=== PATIENT | female | born 1930 | race Caucasian/White ===

== ENCOUNTER → 2016-07-03 | Day surgery (SDC) | payer MEDICARE, OTHER ==
[~2016-07-03] MED LIST: Buffered Lidocaine 1% SYR 3ML* 3 ML/SYR SYRINGE INTRADERM ONE; Buffered Lidocaine 1% SYR 3ML* 3 ML/SYR SYRINGE ONE; Lidocaine 1% INJ* 10 MG/ML 30 ML SDV ONE; Lidocaine 2% MPF* 2 ML VIAL ONE; Midazolam* 1 MG/ML 2 ML VIAL (2 MG) ONE; Propofol* 10 MG/ML 20 ML BTL IV PUSH ONE; ceFAZolin 2 GM PREMIX (*) 2 GM/50 ML BAG IVPB ONE; fentaNYL* 50 MCG/ML 2 ML VIAL (100 MCG VIAL) ONE
[2016-07-03 09:50] VITALS: BP 106/64
--- NOTE | 2016-07-03 10:01 | RAD ---
INDICATION: Port placement. COMPARISON: Comparison is made with a prior chest x-ray study from January 15, 2016. TECHNIQUE: A portable view of the chest was obtained. FINDINGS: There is a power port central venous catheter present on the right side. The catheter tip projects approximately at the junction of the superior vena cava and right atrium. The heart is moderately enlarged and unchanged. There is a transvenous pacemaker present. The lungs are clear. No pleural effusion or pneumothorax is seen. IMPRESSION: STATUS POST POWERPORT CENTRAL VENOUS CATHETER PLACEMENT, NO EVIDENCE FOR ACUTE FINDING.
--- NOTE | 2016-07-03 10:04 | RAD ---
INDICATION: chest port placement COMPARISONS: None relevant TECHNIQUE: Fluoroscopy was provided for a vascular access procedure. Total fluoroscopy time is: 9.5 seconds FINDINGS: A right-sided chest port is noted from subclavian approach with tip overlying the superior vena cava. IMPRESSION: FLUOROSCOPY WAS PROVIDED FOR A VASCULAR ACCESS PROCEDURE CPT II Codes: 6045F
--- NOTE | 2016-07-04 03:54 | OP ---
CC: Dr. Dominique; [facility] OPERATIVE REPORT: DATE OF OPERATION: 07/03/16 DATE OF : 34 SURGEON: Abdirahman Dominique MD CHIEF OF SERVICE: None. ANESTHESIOLOGIST: Dr. Gudino. ANESTHESIA: LMAC. PRE-OP DIAGNOSIS: Carcinoma of the bladder. POST-OP DIAGNOSIS: Carcinoma of the bladder. OPERATIVE PROCEDURE: Placement of right subclavian 8-[place]awk PowerPort. DESCRIPTION OF PROCEDURE: The patient was supine on the operative table. After adequate intravenou s sedation, compression stockings, Ashley Hugger warmer, and intravenous antibiotics, the right neck a nd chest region were prepped with antiseptic, draped in a sterile fashion. Right subclavian incisio n was carried out. Inferior pocket was created. Subclavian venipuncture was carried out. A guidew mynor was passed under fluoroscopic guidance. Catheter was passed through the peel-away introducer, m easured, and cut at 27 cm, and attached to the port, which was sutured into pocket with 2-0 Prolene. The port was flushed with saline solution. The pocket was closed with 3-0 and 5-0 Polysorb, follo wed by Steri- Strips. The port was accessed. There was good blood return. It was flushed with hep arinized solution. A Tegaderm was placed. She tolerated the procedure well, was brought to Recover [facility] in good condition. No complications. No drains. No pathologic specimens. Sponge and instrument counts correct. Estimated blood loss less than 10 mL. [id number]/[facility] #: [id number]
== END | disposition home or self-care (01) ==
LOC: OR 07:30
PROVIDERS: ATTEND Surgery
DX: C67.9 Malignant neoplasm of bladder, unspecified (principal); I48.91 Unspecified atrial fibrillation; I10 Essential (primary) hypertension; I34.0 Nonrheumatic mitral (valve) insufficiency; Z79.01 Long term (current) use of anticoagulants
CPT/HCPCS: 71010; C1788; J0690; J1642; J2250; J2704; J3010

== ENCOUNTER 2016-09-15 15:38 | Inpatient (IN) | payer MEDICARE, OTHER ==
[2016-09-15] MEDS ORDERED: Ondansetron INJ* 2 MG/ML VIAL IV ONE (16:22)
[2016-09-15 16:24] LABS: Hematocrit 23 % (35-47); Hemoglobin 7.6 g/dl (12.0-16.0); Mean Corpuscular HGB Conc 33 g/dl (31-36); Mean Corpuscular Hemoglobin 30 pg (27-31); Mean Corpuscular Volume 91 fL (80-97); Mean Platelet Volume 7 um3 (7.4-10.4); Red Blood Count 2.51 10^6/ul (4.0-5.4); Red Cell Distribution Width 19 % (10.5-15); White Blood Count 17.4 10^3/ul (3.5-10.8)
[2016-09-15] MEDS ORDERED: Ondansetron INJ* 2 MG/ML VIAL ONE (16:24)
[2016-09-15] MEDS: NS 0.9% 1000 ML* 2,000 ML IV ONE (16:26)
[2016-09-15 16:36] LABS: Albumin 2.1 g/dL (3.2-5.2); BUN/Creatinine Ratio 13.4 (8-20); C Reactive Protein 135.84 mg/L (< 5.00); Calcium 7.2 mg/dL (8.6-10.3); EGFR African American 40.4 (>60); EGFR Non-African American 31.4 (>60); Globulin 2.5 g/dL (2-4); Potassium 4.2 mmol/L (3.5-5.0); Total Bilirubin 0.5 mg/dL (0.2-1.0); Total Protein 4.6 g/dL (6.4-8.9)
[2016-09-15 16:37] LABS: Troponin I 0.02 ng/mL (<0.04)
[2016-09-15] MEDS ORDERED: Morphine INJ* 4 MG/ML 1 ML SYRINGE IV ONE (16:48)
--- NOTE | 2016-09-15 17:12 | RAD ---
Indication: Cough, shortness of breath and pneumonia. Single frontal view of the chest performed at 1654 hours was reviewed. Comparison is made with previous exam dated July 03, 2016. PowerPort is in place with the tip in the superior vena cava. No pneumothorax is noted. Pacemaker leads are in place. IMPRESSION: No active cardiopulmonary disease is noted..
[2016-09-15] MEDS ORDERED: Phytonadione Oral Solution* 5 MG/25 ML UDC PO ONE (17:38)
--- NOTE | 2016-09-15 19:02 | ED ---
leopoldo Key Timothy, scribed for Melo Levy MD on 09/15/16 at 1605 . GI/ HPI - HPI Summary HPI Summary: Kelly Mendez is an 86 yo female presenting to [facility] with vaginal bleeding S /P bladder surgery 2 weeks ago, 09/01/16. She had a cardiac stent put in 09/13/16, after a NE 09/08/16. She states she had a steady flow in the toilet, but was not hemorrhaging. She was told she might have some vaginal bleeding, but she is now slightly hypotensive. She did not bleed at all yesterday. She vomited slightly yesterday. 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 There is no blood in the urine. She is on coumadin. Her MHx includes pacemaker 2012, stent, CHF prior to pacemaker, MVP, HTN, Afib, hypothyroidism, cranial plate 1998, hysterectomy, GI bleed, osteoperosis, anemia, endometrial radiation therapy. - History of Current Complaint Time Seen by Provider: 09/15/16 15:59 Stated Complaint: VAG BLEEDING/POST SURGERY Hx Obtained From: Patient Onset/Duration: Started Hours Ago, Still Present Timing: Constant Severity: Moderate Current Severity: Moderate Vaginal Bleeding Description: Bright Red Associated Signs and Symptoms: Positive: Syncope, Vomiting, Other: - syncope. Negative: Hematuria Additional Signs & Symptoms: Positive: Vaginal Bleeding - Additional Pertinent History Primary Care Physician: [id number] - Allergy/Home Medications Allergies/Adverse Reactions: Allergies Allergy/AdvReac Type Severity Reaction Status Date / Time No Known Allergies Allergy Verified 07/25/16 12:10 Home Medications: Home Medications Aspirin EC Low Dose* [Ecotrin EC Low Dose 81 MG*] 81 mg PO DAILY 09/15/16 [ History Confirmed 09/15/16] Atorvastatin* [Lipitor*] 80 mg PO DAILY 09/15/16 [History Confirmed 09/15/16] Cefuroxime Axetil [Ceftin 500 MG TAB] 500 mg PO Q12HR 09/15/16 [History Confirmed 09/15/16] Clopidogrel TAB* [Plavix TAB*] 75 mg PO DAILY 09/15/16 [History Confirmed ] Docusate CAP* [Colace Cap*] 100 mg PO BID 09/15/16 [History Confirmed 09/15/16] Ferrous Sulfate [Feosol] 65 mg PO DAILY 09/15/16 [History Confirmed 09/15/16] Hydrocodone-Acetaminophen [Lorcet Plus 7.5-325 mg] 1 tab PO Q6HR 09/15/16 [ History Confirmed 09/15/16] Metoprolol Succinate XL TAB* [Toprol XL TAB*] 50 mg PO DAILY 09/15/16 [History Confirmed 09/15/16] PMH/Surg Hx/FS Hx/Imm Hx Endocrine/Hematology History: Reports: Hx Thyroid Disease - HYPO THRYROID, Hx Anemia - 01/15/16 admission R/T HEMORRHAGE IN PT FOR 5 DAYS COLON Denies: Hx Diabetes Cardiovascular History: Reports: Hx Congestive Heart Failure - prior to pacer- no s/s since, Hx Coronary Artery Disease, Hx Hypertension - WELL CONTROLLED, Hx Pacemaker/ICD - LAURITA TACHY DISORDER, Hx Valvular Heart Disease - MVP, Other Cardiovascular Problems/Disorders - Afib Respiratory History: Denies: Hx Asthma, Hx Chronic Obstructive Pulmonary Disease (COPD) GI History: Reports: Hx Gastrointestinal Bleed - 01/15/16 admission, Other GI Disorders - HX OF LOWER GI BLEED, 12/2015 Denies: Hx Ulcer History: Reports: Other Problems/Disorders - HX OF BLOOD IN URINE Denies: Hx Kidney Stones - pt. 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 crainial surgery for "hole", plate insertion, 1998 [facility]. PACEMAKER 2014 [facility] Hx Anesthesia Reactions: No - Immunization History Date of Tetanus Vaccine: 2015 Date of Influenza Vaccine: 03/29/15 Infectious Disease History: Denies: Hx Hepatitis, Hx Human Immunodeficiency Virus (HIV), Traveled Outside the [place] in Last 30 Days - Family History Known Family History: Positive: Unknown - Social History Alcohol Use: None Alcohol Amount: WINE AT DINNER TIME Substance Use Type: Reports: None Smoking Status (MU): Never Smoked Tobacco Have You Smoked in the Last Year: No Review of Systems Constitutional: Negative Eyes: Negative ENT: Negative Cardiovascular: Negative Respiratory: Negative Positive: Vomiting Genitourinary: Other - vaginal bleeding Negative: hematuria Musculoskeletal: Negative Skin: Negative Positive: Syncope Psychological: Normal All Other Systems Reviewed And Are Negative: Yes Physical Exam - Summary Physical Exam Summary: The patient is ill appearing and pale. The skin is warm and dry and skin color reflects adequate perfusion. There is decreased skin turgor. HEENT: The head is normocephalic and atraumatic. The pupils are equal and reactive. The conjunctivae are pale and without drainage. Nares are patent and without drainage. Mouth reveals dry mucous membranes and the throat is without erythema and exudate. The external ears are intact. The ear canals are patent and without drainage. The tympanic membranes are intact. Neck is supple with full range of motion and non-tender. There are no carotid bruits. There is no neck vein distension. Respiratory: Chest is non-tender. Lungs are clear to auscultation and breath sounds are symmetrical and equal. There is no rales, rhonchi or wheezes. Cardiovascular: Heart is tachycardic with irregular rhythm. There is no murmur or rub auscultated. There is peripheral edema in the lower extremities and pulses are symmetrical and equal. Abdomen: The abdomen is soft and non-tender. There are normal bowel sounds heard in all four quadrants and there is no organomegaly palpated. There are 6 well-healing laproscopic incisions that are not inflamed and do not appear to be infected. There is an ileostomy with no blood. External vaginal: large amount of blood clots in the vagina. Musculoskeletal: There is no back pain noted. Extremities are non-tender with full range of motion. There is capillary refill of 3 seconds. There is no peripheral edema or calf tenderness elicited. Neurological: Patient is alert and oriented to person, place and time. The patient has symmetrical motor strength in all four extremities. Cranial nerves are grossly intact. Deep tendon reflexes are symmetrical and equal in all four extremities. Psychiatric: The patient has an appropriate affect and does not exhibit any anxiety or depression. Triage Information Reviewed: Yes Vital Signs On Initial Exam: Initial Vital Signs Temp 97.9 F 09/15/16 15:57 Pulse 90 09/15/16 15:57 Resp 20 09/15/16 15:57 BP 102/49 09/15/16 15:57 Pulse Ox 100 09/15/16 15:57 Vital Signs Reviewed: Yes Diagnostics - Vital Signs Vital Signs Temp Pulse Resp BP Pulse Ox 09/15/16 18:00 19 110/59 09/15/16 17:30 51 23 124/71 73 09/15/16 17:00 92 19 105/50 99 09/15/16 16:55 26 09/15/16 16:39 95 23 99/50 99 09/15/16 16:30 97/52 09/15/16 16:09 95 22 102/55 98 09/15/16 16:00 90 22 99 09/15/16 15:57 97.9 F 90 20 102/49 100 09/15/16 15:55 79 102/49 100 09/15/16 15:54 52 100 09/15/16 15:53 85/45 - Laboratory Lab Results: Lab Results 09/15/16 09/15/16 09/15/16 Range/Units 16:05 16:05 16:05 WBC 17.4 H (3.5-10.8) 10^3/ul RBC 2.51 L (4.0-5.4) 10^6/ul Hgb 7.6 L (12.0-16.0) g/dl Hct 23 L (35-47) % MCV 91 (80-97) fL MCH 30 (27-31) pg MCHC 33 (31-36) g/dl RDW 19 H (10.5-15) % Plt Count 252 (150-450) 10^3/ul MPV 7 L (7.4-10.4) um3 Neut % (Auto) 91.1 H (38-83) % Lymph % (Auto) 2.4 L (25-47) % Talbot % (Auto) 6.2 (1-9) % Eos % (Auto) 0.1 (0-6) % Baso % (Auto) 0.2 (0-2) % Absolute Neuts (auto) 15.8 H (1.5-7.7) 10^3/ul Absolute Lymphs (auto) 0.4 L (1.0-4.8) 10^3/ul Absolute Monos (auto) 1.1 H (0-0.8) 10^3/ul Absolute Eos (auto) 0 (0-0.6) 10^3/ul Absolute Basos (auto) 0 (0-0.2) 10^3/ul Absolute Nucleated RBC 0 10^3/ul Nucleated RBC % 0 INR (Anticoag Therapy) (0.89-1.11) APTT (26.0-36.3) seconds Sodium 127 L (133-145) mmol/L Potassium 4.2 (3.5-5.0) mmol/L Chloride 99 L (101-111) mmol/L Carbon Dioxide 17 L (22-32) mmol/L Anion Gap 11 (2-11) mmol/L BUN 21 (6-24) mg/dL Creatinine 1.57 H (0.51-0.95) mg/dL Est GFR ( Amer) 40.4 (>60) Est GFR (Non-Af Amer) 31.4 (>60) BUN/Creatinine Ratio 13.4 (8-20) Glucose 139 H (70-100) mg/dL Lactic Acid 2.0 (0.5-2.0) mmol/L Calcium 7.2 L (8.6-10.3) mg/dL Total Bilirubin 0.50 (0.2-1.0) mg/dL AST 19 (13-39) U/L ALT 12 (7-52) U/L Alkaline Phosphatase 109 H (34-104) U/L Total Creatine Kinase 20 (10-223) U/L Troponin I 0.02 (<0.04) ng/mL C-Reactive Protein 135.84 H (< 5.00) mg/L B-Natriuretic Peptide ( - 100) pg/mL Total Protein 4.6 L (6.4-8.9) g/dL Albumin 2.1 L (3.2-5.2) g/dL Globulin 2.5 (2-4) g/dL Albumin/Globulin Ratio 0.8 L (1-3) Lipase 17 (11.0-82.0) U/L Blood Type Antibody Screen Crossmatch 09/15/16 09/15/16 09/15/16 Range/Units 16:05 16:05 16:05 WBC (3.5-10.8) 10^3/ul RBC (4.0-5.4) 10^6/ul Hgb (12.0-16.0) g/dl Hct (35-47) % MCV (80-97) fL MCH (27-31) pg MCHC (31-36) g/dl RDW (10.5-15) % Plt Count (150-450) 10^3/ul MPV (7.4-10.4) um3 Neut % (Auto) (38-83) % Lymph % (Auto) (25-47) % Talbot % (Auto) (1-9) % Eos % (Auto) (0-6) % Baso % (Auto) (0-2) % Absolute Neuts (auto) (1.5-7.7) 10^3/ul Absolute Lymphs (auto) (1.0-4.8) 10^3/ul Absolute Monos (auto) (0-0.8) 10^3/ul Absolute Eos (auto) (0-0.6) 10^3/ul Absolute Basos (auto) (0-0.2) 10^3/ul Absolute Nucleated RBC 10^3/ul Nucleated RBC % INR (Anticoag Therapy) 2.83 H (0.89-1.11) APTT 36.0 (26.0-36.3) seconds Sodium (133-145) mmol/L Potassium (3.5-5.0) mmol/L Chloride (101-111) mmol/L Carbon Dioxide (22-32) mmol/L Anion Gap (2-11) mmol/L BUN (6-24) mg/dL Creatinine (0.51-0.95) mg/dL Est GFR ( Amer) (>60) Est GFR (Non-Af Amer) (>60) BUN/Creatinine Ratio (8-20) Glucose (70-100) mg/dL Lactic Acid (0.5-2.0) mmol/L Calcium (8.6-10.3) mg/dL Total Bilirubin (0.2-1.0) mg/dL AST (13-39) U/L ALT (7-52) U/L Alkaline Phosphatase (34-104) U/L Total Creatine Kinase (10-223) U/L Troponin I (<0.04) ng/mL C-Reactive Protein (< 5.00) mg/L B-Natriuretic Peptide 350 H ( - 100) pg/mL Total Protein (6.4-8.9) g/dL Albumin (3.2-5.2) g/dL Globulin (2-4) g/dL Albumin/Globulin Ratio (1-3) Lipase (11.0-82.0) U/L Blood Type O Positive Antibody Screen Negative Crossmatch See Detail Result Diagrams: 09/15/16 16:05 09/15/16 16:05 Lab Statement: Any lab studies that have been ordered have been reviewed, and results considered in the medical decision making process. - Radiology CXR Xray Interpretation: No Acute Changes - IMPRESSION: No active cardiopulmonary disease is noted. Radiology Interpretation Completed By: Radiologist - EKG 1605 Cardiac Rate: Tachycardia EKG Interpretation: Atrial Fibrillation at 99 BPM, no ST changes, old anterior wall NE Re-Evaluation - Re-Evaluation First Eval Re-Evaluation Time: 17:19 Change: Unchanged Comment: Pt was informed of consult with Dr. Meyers and his recommendation for a pelvic exam. Second Eval Re-Evaluation Time: 17:30 Change: Unchanged Comment: Pelvic Exam: Attempted exam with speculum, Pt was too uncomfotable secondary to increased pain to tolerate exam. Removed some clotted blood, saw no active bleeding. Third Eval Re-Evaluation Time: 18:25 Change: Unchanged Comment: Given that [facility] does not accept Pt's for transfer after 1700, Pt and family are requesting to be admitted to [facility] for observation. GIGU Course/Dx - Course Assessment/Plan: Kelly Mendez is an 86 yo female presenting [facility] with vaginal bleeding S/P bladder surgery. Pt has had an abdominal hysterectomy in the past due to a Hx of endometrial CA. Pt is on anticoagulant therapy. After review of her EKG, CXR, and lab work, as well as discussion with Dr. Meyers and Dr. David, she will be admitted to [facility] for further evaluation and care. - Diagnoses Differential Diagnoses - Female: Other - post operative bleeding from vagina, anticoagualtion therapy, Provider Diagnoses: Tachycardia, Hypotension, History of bladder cancer, History of endometrial cancer, Postoperative vaginal bleeding - Physician Notifications Discussed Care Of Patient With: [id number] - Dr. Meyers (hematology and oncology) - call out to Dr. Meyers. [id number] - Dr. Meyers (hematology and oncology) - returned call. Discussed Pt condition and recommends performance of a pelvic exam and to call [facility] for possible transfer of Pt. 173 - [facility] - transfer center is closed as of 1699. 1811 - Dr. Meyers (hematology and oncology) - Discussed Pt condition, agrees to evaluate Pt for admission to [facility]. Recommends consult with [employer] [employer]. 1823 - Dr. Munson ([employer] [employer]) - call out, she is engaged in a procedure. 1854 - Dr. David (urology) - discussed Pt condition. - Critical Care Time Critical Care Time: 30-74 min - 45 mins Discharge - Discharge Plan Condition: Stable Disposition: ADMITTED TO [facility] Discharge Disposition Comment: admitted to [facility] for further evaluation and treatment Referrals: No Primary Care Phys,NOPCP [Primary Care Provider] - The documentation as recorded by the leopoldo minor Timothy accurately reflects the service I personally performed and the decisions made by me, Melo Levy MD.
--- NOTE | 2016-09-15 19:23 | ADMNOTE ---
Admission Chief Complaint: vaginal bleeding History of Present Illness: 86 yo F w PMH of locally advanced bladder cancer sp recent robotic cystectomy presenting with vaginal bleeding. Kelly underwent a robotic assisted cystectomy on September 01 at [facility] with Dr. Meraz. She reports that she had vaginal packing after this which was removed on September 02. On September 06 she developed chest pressure and was diagnosed with an acute MN. She was transferred to [facility] under the care of Dr Juan Rose and had a drug eluding stent placed in her circumflex artery. She was started on a baby aspirin and plavix. Postoperatively she developed an ileus and had a NGT to decompress. This was discontinued prior to discharged and she was tolerating a bland diet. Yesterday she did vomit though today she was able to tolerate a diet and had a very small, nonbloody BM. She was discharged on Thursday after being transfused 2 units of PRBCs. She had a Hb of 8.9 on discharge per her recollection. Over the weekend she had mild vaginal spotting which they told her to expect, however today she developed brisk bright red blood per vagina and so was advised by [facility] to come to the ER. She was noted to have an INR of 2.8 on arrival and at my recommendation was given vitamin K and is awaiting 2 U PRBC. I have personally spoken with the trailhead maintenance worker who advised that he is ok with holding the coumadin, and even the asa if necessary, but would strongly recommend continuing plavix if possible. Dr. Levy did try to do a pelvic exam however it was very uncomfortable, and there was some clotting on the speculum. I did speak with the covering urologist from [place] who felt that this could be some postoperative seroma from the vaginal cuff and if stabilizes can likely be followed up as an outpatient as planned on , however if vaginal exam revealed any more concerning findings they were happy to accept her as a transfer when a bed was available. She denies any chest pain at this time. Allergies/Medications Medication: Home Medications Medication Instructions Recorded Confirmed Type Levothyroxine TAB* [Synthroid 88 88 mcg PO QAM 10/29/15 09/15/16 History MCG TAB*] Warfarin TAB(*) [Coumadin TAB(*)] 2.5 mg PO SUMOWEFRSA 07/02/16 09/15/16 History Warfarin TAB(*) [Coumadin TAB(*)] 5 mg PO TUTH 07/02/16 09/15/16 History Aspirin EC Low Dose* [Ecotrin EC 81 mg PO DAILY 09/15/16 09/15/16 History Low Dose 81 MG*] Atorvastatin* [Lipitor*] 80 mg PO DAILY 09/15/16 09/15/16 History Cefuroxime Axetil [Ceftin 500 MG 500 mg PO Q12HR 09/15/16 09/15/16 History TAB] Clopidogrel TAB* [Plavix TAB*] 75 mg PO DAILY 09/15/16 09/15/16 History Docusate CAP* [Colace Cap*] 100 mg PO BID 09/15/16 09/15/16 History Ferrous Sulfate [Feosol] 65 mg PO DAILY 09/15/16 09/15/16 History Hydrocodone-Acetaminophen [Lorcet 1 tab PO Q6HR 09/15/16 09/15/16 History Plus 7.5-325 mg] Metoprolol Succinate XL TAB* 50 mg PO DAILY 09/15/16 09/15/16 History [Toprol XL TAB*] Allergies/Adverse Reactions: Allergies Allergy/AdvReac Type Severity Reaction Status Date / Time No Known Allergies Allergy Verified 07/25/16 12:10 History - Past Medical History Other History: prior GIB. afib. bladder cancer. MN. endometrial CA sp hysterectomy and RT 1998. chronic cystitis related to above. HTN. hypothyroidism. hernia repair. PPM - Family History Other Family History: mother breast cancer. sister melanoma - Social History Hx Alcohol Use: No Hx Tobacco Use: No Marital Status: Review of Systems - Review of Systems Constitutional Symptoms: Positive: Fatigue Dermatology: Positive: Normal HEENT: Positive: Normal Eyes: Positive: Normal Thyroid: Positive: Primary Hypothyroidism Pulmonary: Positive: Cough Cardiology: Positive: Normal Gastroenterology: Positive: Constipation Genitourinay - Female: Vaginal Discharge Endocrinology: Positive: Thyroid Problems Hematologic/Lymphatic: Positive: Anemia Neurology: Positive: Normal Psychiatry: Positive: Normal Physical Exam - Physical Exam Physical Examination: Vital Signs Temp Pulse Resp BP Pulse Ox 97.9 F 96 20 100/59 98 09/15/16 15:57 09/15/16 19:00 09/15/16 19:00 09/15/16 19:00 09/15/16 19:00 well appearing sitting up in NAD perr eomi op moist CTA bl s1 s2 irr irr soft nt well healing port sites clean ostomy site neobladder trace ankle edema a+O x 3, nonfocal neurological exam Results - Lab Results Lab Results: 09/15/16 09/15/16 09/15/16 16:05 16:05 16:05 WBC 17.4 H RBC 2.51 L Hgb 7.6 L Hct 23 L MCV 91 MCH 30 MCHC 33 RDW 19 H Plt Count 252 MPV 7 L Neut % (Auto) 91.1 H Lymph % (Auto) 2.4 L Smith % (Auto) 6.2 Eos % (Auto) 0.1 Baso % (Auto) 0.2 Absolute Neuts (auto) 15.8 H Absolute Lymphs (auto) 0.4 L Absolute Monos (auto) 1.1 H Absolute Eos (auto) 0 Absolute Basos (auto) 0 Absolute Nucleated RBC 0 Nucleated RBC % 0 INR (Anticoag Therapy) APTT Sodium 127 L Potassium 4.2 Chloride 99 L Carbon Dioxide 17 L Anion Gap 11 BUN 21 Creatinine 1.57 H Est GFR ( Amer) 40.4 Est GFR (Non-Af Amer) 31.4 BUN/Creatinine Ratio 13.4 Glucose 139 H Lactic Acid 2.0 Calcium 7.2 L Total Bilirubin 0.50 AST 19 ALT 12 Alkaline Phosphatase 109 H Total Creatine Kinase 20 Troponin I 0.02 C-Reactive Protein 135.84 H B-Natriuretic Peptide Total Protein 4.6 L Albumin 2.1 L Globulin 2.5 Albumin/Globulin Ratio 0.8 L Lipase 17 Blood Type Antibody Screen Crossmatch 09/15/16 09/15/16 09/15/16 16:05 16:05 16:05 WBC RBC Hgb Hct MCV MCH MCHC RDW Plt Count MPV Neut % (Auto) Lymph % (Auto) Smith % (Auto) Eos % (Auto) Baso % (Auto) Absolute Neuts (auto) Absolute Lymphs (auto) Absolute Monos (auto) Absolute Eos (auto) Absolute Basos (auto) Absolute Nucleated RBC Nucleated RBC % INR (Anticoag Therapy) 2.83 H APTT 36.0 Sodium Potassium Chloride Carbon Dioxide Anion Gap BUN Creatinine Est GFR ( Amer) Est GFR (Non-Af Amer) BUN/Creatinine Ratio Glucose Lactic Acid Calcium Total Bilirubin AST ALT Alkaline Phosphatase Total Creatine Kinase Troponin I C-Reactive Protein B-Natriuretic Peptide 350 H Total Protein Albumin Globulin Albumin/Globulin Ratio Lipase Blood Type O Positive Antibody Screen Negative Crossmatch See Detail Assessment and Plan Impression: 86 yo F w PMH of afib on coumadin, locally advanced bladder CA sp recent robotic cystectomy complicated by an acute MN presenting now wiht vaginal bleeding on triplet anticoagulation. In speaking with the covering urologic oncologist, this is a common complication in women sp cystectomy and is likely related to vaginal cuff bleeding with a seroma, and exacerbated by coumadin. As long as she is stable and there is no clear pathology on vaginal exam they felt that it could be managed locally with transfusion support and stopping the coumadin. They recommended against packing. If she becomes unstable or there is a clear surgical defect that needs operative management they would be happy to accept her in transfer, otherwise they would see her as per routine on as an outpatient. At this point she will be admitted as an observation to telemetry and will be transfused 2 U prbc. We will try to continue her plavix and asa. I will ask Dr. Munson to see her in consultation for a thorough pelvic exam.
--- NOTE | 2016-09-15 21:09 | RAD ---
Indication: Vaginal bleeding, status post cystectomy, evaluate for intraoperative fluid collection. CT of the abdomen and pelvis was performed without oral or IV contrast administration. Coronal and sagittal reconstructed images were obtained. Lung bases demonstrate no pleural fluid, nodules or masses. Heart is enlarged without pericardial effusion. Pacemaker leads are in place. Liver is normal in size. No focal lesions or present although the study is limited due to lack of IV contrast. Small amount of perihepatic ascites is noted. The gallbladder is partially contracted. Common duct is not dilated. Pancreas demonstrates no mass or pancreatic duct dilatation. The spleen is normal in size. No adrenal masses are noted. The kidneys demonstrates bilateral ureteral stents in place. The patient has had a cystectomy with a right ileal conduit. No retroperitoneal lymphadenopathy is noted. Aorta and inferior vena cava are unremarkable. There are moderately dilated loops of small bowel noted. Deep in the pelvis at the cystectomy site there is a fluid collection with flocculent areas of air consistent with an abscess collection. This measures approximately 6.1 x 6.2 x 6.3 cm. No hernias are noted. The small bowel loops demonstrate moderately dilated loops of small bowel suspicious for an adynamic ileus. IMPRESSION: PELVIC FLUID COLLECTION MEASURING 6.2 X 6.2 X 6.3 CM IN THE CYSTECTOMY SITE SUSPICIOUS FOR EITHER POSTOPERATIVE COLLECTION OR EARLY ABSCESS FORMATION. MODERATELY DISTENDED LOOPS OF SMALL BOWEL WHICH MAY REPRESENT ADYNAMIC ILEUS. THERE IS A RIGHT LOWER QUADRANT ILEAL LOOP NOTED. BILATERAL URETERAL STENTS ARE PRESENT. SMALL AMOUNT OF ASCITES IS NOTED.
[2016-09-15] MEDS: ceFUROXime TAB(*) 250 MG PO SCH (22:08)
[2016-09-15] MEDS: Docusate CAP* 100 MG PO SCH (22:09)
[2016-09-16 04:24] LABS: Hematocrit 25 % (35-47); Hemoglobin 8.5 g/dl (12.0-16.0); Mean Corpuscular HGB Conc 34 g/dl (31-36); Mean Corpuscular Hemoglobin 30 pg (27-31); Mean Corpuscular Volume 89 fL (80-97); Mean Platelet Volume 7 um3 (7.4-10.4); Red Blood Count 2.85 10^6/ul (4.0-5.4); Red Cell Distribution Width 18 % (10.5-15); White Blood Count 11.2 10^3/ul (3.5-10.8)
[2016-09-16 04:57] LABS: Calcium 7.4 mg/dL (8.6-10.3); Globulin 2.4 g/dL (2-4); Total Bilirubin 0.9 mg/dL (0.2-1.0); Total Protein 4.4 g/dL (6.4-8.9)
[2016-09-16] MEDS: Levothyroxine TAB* 88 MCG TAB PO SCH (06:16)
[2016-09-16] MEDS: Metoprolol Succinate XL TAB* 50 MG PO SCH (08:25)
[2016-09-16] MEDS: Aspirin EC Low Dose* 81 MG TAB.EC PO SCH (08:26)
[2016-09-16] MEDS: Ferrous Sulfate TAB* 325 MG PO SCH ×2 (08:26→08:30)
[2016-09-16] MEDS: Atorvastatin* 80 MG TAB PO SCH (08:26)
[2016-09-16] MEDS: ceFUROXime TAB(*) 250 MG PO SCH ×2 (08:27→20:30)
[2016-09-16] MEDS: Docusate CAP* 100 MG PO SCH ×2 (08:27→20:30)
[2016-09-16] MEDS: Clopidogrel TAB* 75 MG PO SCH (08:27)
--- NOTE | 2016-09-16 10:15 | RAD ---
HISTORY: Postop bilateral edema COMPARISONS: None relevant TECHNIQUE: Multiple transverse and longitudinal ultrasound images were obtained of the bilateral lower extremities from the level of the common femoral vein inferiorly through to the infrapopliteal veins using grayscale, color Doppler, and spectral Doppler imaging with and without compression and with augmentation. FINDINGS: Evaluation the calf veins is limited secondary to swelling. VEINS: The venous system of the bilateral lower extremities is compressible throughout its course, with normal flow on color Doppler imaging and normal response to augmentation on spectral Doppler imaging. SOFT TISSUES: Unremarkable. OTHER FINDINGS: None. IMPRESSION: LIMITED EVALUATION OF THE CALF VEINS. THERE IS NO DEEP VEIN THROMBOSIS OF THE VISUALIZED PORTIONS OF THE LOWER EXTREMITY VEINS BILATERALLY.
[2016-09-16 11:07] LABS: Budding Yeast Present (Absent); Urine Bacteria Absent (Absent); Urine Bilirubin Negative (Negative); Urine Glucose Negative (Negative); Urine Nitrite Negative (Negative)
[2016-09-16] MEDS: Polyethylene Glycol 3350* 17 GM PACKET PO PRN (13:41)
[2016-09-16 14:03] LABS: Hematocrit 26 % (35-47); Hemoglobin 8.8 g/dl (12.0-16.0); Mean Corpuscular HGB Conc 33 g/dl (31-36); Mean Corpuscular Hemoglobin 30 pg (27-31); Mean Corpuscular Volume 89 fL (80-97); Mean Platelet Volume 7 um3 (7.4-10.4); Red Blood Count 2.97 10^6/ul (4.0-5.4); Red Cell Distribution Width 18 % (10.5-15); White Blood Count 11.1 10^3/ul (3.5-10.8)
--- NOTE | 2016-09-16 16:57 | CONS ---
CARDIOLOGY CONSULTATION: DATE OF CONSULT: 09/16/16 INDICATION FOR CONSULTATION: Atrial fibrillation, tachycardia. HISTORY OF PRESENT ILLNESS: The patient is an 86-year-old female with a history of chronic atrial fibrillation, history of single chamber pacemaker implantation in 2013, history of a recent myocardial infarction, history of recent robotic cystectomy for bladder cancer. The patient was brought to the emergency room because of vaginal bleeding. I was consulted because the patient was tachycardic this morning with a heart rate of 150 in atrial fibrillation. The patient has a history of chronic atrial fibrillation. She had a single chamber [employer] pacemaker placed in 2013. It is a [employer] model 1210. The patient had surgery on September 01 for a cystectomy for bladder cancer. The patient had an acute myocardial infarction on September 06 and had a stent placed to her left circumflex artery on that date. The patient was discharged on aspirin 81 mg a day, Plavix 75 mg a day and Coumadin. The patient was brought to the emergency room yesterday because of vaginal spotting. This morning the patient had a heart rate of 150 with a blood pressure of 110/ 70. In speaking with the patient, she has no specific cardiac complaints. She denies any further episodes of chest pain. She denies any palpitations. She denies any lightheadedness, dizziness, or syncope. PAST MEDICAL HISTORY: Significant for: 1. Bladder cancer. 2. Endometrial cancer, status post hysterectomy in 1998. 3. History of chronic atrial fibrillation. 4. History of coronary artery disease with a stent to her left circumflex artery on 09/06/16. 5. Hypothyroidism. PAST SURGICAL HISTORY: 1. Hysterectomy. 2. Bladder cystectomy. 3. Hernia repair. 4. Pacemaker implantation. OUTPATIENT MEDICATIONS: 1. Metoprolol XL 50 mg a day. 2. Iron tablets. 3. Plavix 75 mg a day. 4. Ceftin 500 mg twice a day. 5. Lipitor 80 mg a day. 6. Aspirin 81 mg a day. 7. Coumadin as directed. 8. Levothyroxine 88 mcg a day. ALLERGIES: No known drug allergies. SOCIAL HISTORY: She is . She denies tobacco or alcohol use. REVIEW OF SYSTEMS: Per her intake sheet. PHYSICAL EXAMINATION: Height is 5 feet 5 inches, weight is 130 pounds, temperature 97.9, heart rate is 100, blood pressure 110/54, respiratory rate is 24, oxygen saturation is 100% on room air. Sclerae anicteric. Oropharynx is pink without erythema. Carotids are 2+ without bruits. JVD is normal. Thyroid is normal. Cardiac Exam: Irregular, tachycardic. S1, S2 without any murmurs, rubs or gallops. Lungs: Have mild rhonchi on exam. There is no dullness to percussion. There are no rales on exam. Abdomen: Mildly tender, it is mildly distended. There are very minimal bowel sounds. There is no obvious hepatosplenomegaly. Extremities: Show no edema. She has 2+ pulses throughout. The patient is awake, alert and oriented. She moves all 4 extremities equally. DIAGNOSTIC STUDIES/LAB DATA: White count 11.2, hemoglobin 8.5, hematocrit 25, platelet count 204. Chemistries: Sodium 129, BUN 20, creatinine 1.4. AST and ALT are normal. INR today is 1.67. EKG demonstrates atrial fibrillation with rapid ventricular response, incomplete right bundle branch block. Pacemaker interrogation today demonstrates a [employer] model 1210 implant date December 2013. The patient has a single chamber device. She is ventricularly paced 15% of the time, ventricularly sensed,85% of the time. Her average heart rate is between 90 and 100 beats a minute. Her ventricular lead is functioning normally. No abnormal rhythms detected. IMPRESSION: This is an 86-year-old female who was admitted to the hospital with vaginal bleeding. She has a recent history of bladder cystectomy for bladder cancer, also a recent myocardial infarction with a stent to her left circumflex artery. The patient's heart rate was very elevated this morning. It is now down to a more appropriate range. For now my recommendation is to continue medical therapy in this patient. The patient will continue on Plavix and aspirin. Her Coumadin will be held because of her vaginal bleeding. The patient will continue on heart rate control. The patient will be restarted on her metoprolol XL 50 mg a day. If her heart rate remains elevated and poorly controlled, we will consider digoxin for heart rate control. No further cardiac workup is necessary at this point. The patient will follow up with her regular hr associate, Dr. Juan Menezes. CC: Bayron Salmeron MD* [id number]/[facility] #: [id number] [facility]
[2016-09-16] MEDS: GuaiFENesin DM* 5 ML UDC PO PRN (19:24)
[2016-09-16 19:28] LABS: Hematocrit 27 % (35-47); Hemoglobin 8.8 g/dl (12.0-16.0); Mean Corpuscular HGB Conc 33 g/dl (31-36); Mean Corpuscular Hemoglobin 30 pg (27-31); Mean Corpuscular Volume 89 fL (80-97); Mean Platelet Volume 7 um3 (7.4-10.4); Red Blood Count 2.98 10^6/ul (4.0-5.4); Red Cell Distribution Width 18 % (10.5-15); White Blood Count 11.6 10^3/ul (3.5-10.8)
[2016-09-16] MEDS: oxyCODONE/Acetamin 5/325 MG* TAB PO PRN (20:31)
[2016-09-17] MEDS: GuaiFENesin DM* 5 ML UDC PO PRN (00:05)
[2016-09-17] MEDS: Ondansetron INJ* 2 MG/ML VIAL IV PRN ×2 (00:08→10:47)
[2016-09-17] MEDS: oxyCODONE/Acetamin 5/325 MG* TAB PO PRN ×2 (05:48→20:39)
[2016-09-17] MEDS: Levothyroxine TAB* 88 MCG TAB PO SCH (05:48)
[2016-09-17] MEDS: Digoxin IV* 0.5 MG/2 ML AMP (0.25 MG/ML) IV SCH ×2 (05:51→10:32)
[2016-09-17 06:34] LABS: Hematocrit 27 % (35-47); Hemoglobin 9.1 g/dl (12.0-16.0); Mean Corpuscular HGB Conc 34 g/dl (31-36); Mean Corpuscular Hemoglobin 30 pg (27-31); Mean Corpuscular Volume 89 fL (80-97); Mean Platelet Volume 7 um3 (7.4-10.4); Red Blood Count 3.04 10^6/ul (4.0-5.4); Red Cell Distribution Width 18 % (10.5-15); White Blood Count 11.2 10^3/ul (3.5-10.8)
[2016-09-17 06:48] LABS: Albumin 2.2 g/dL (3.2-5.2); BUN/Creatinine Ratio 13.5 (8-20); Calcium 7.6 mg/dL (8.6-10.3); EGFR African American 38.7 (>60); EGFR Non-African American 30.1 (>60); Globulin 2.7 g/dL (2-4); Total Bilirubin 0.5 mg/dL (0.2-1.0); Total Protein 4.9 g/dL (6.4-8.9)
[2016-09-17] MEDS: Ferrous Sulfate TAB* 325 MG PO SCH (08:27)
[2016-09-17] MEDS: Docusate CAP* 100 MG PO SCH ×2 (08:28→20:39)
[2016-09-17] MEDS: Metoprolol Succinate XL TAB* 50 MG PO SCH (08:28)
[2016-09-17] MEDS: Aspirin EC Low Dose* 81 MG TAB.EC PO SCH (08:29)
[2016-09-17] MEDS: Clopidogrel TAB* 75 MG PO SCH (08:33)
[2016-09-17] MEDS: ceFUROXime TAB(*) 250 MG PO SCH ×2 (08:34→20:39)
[2016-09-17] MEDS: Atorvastatin* 80 MG TAB PO SCH (08:34)
[2016-09-17] MEDS: Polyethylene Glycol 3350* 17 GM PACKET PO PRN (08:34)
[2016-09-17 09:29] LABS: Troponin I 0.05 ng/mL (<0.04)
[2016-09-17] MEDS ORDERED: Metoprolol Tartrate IV* 1 MG/ML 5 ML VIAL IV ONE (13:35)
[2016-09-17] MEDS ORDERED: Digoxin TAB* 0.25 MG PO ONE (15:00)
[2016-09-17] MEDS ORDERED: Digoxin IV* 0.5 MG/2 ML AMP (0.25 MG/ML) IV SLOW PU ONE (15:30)
[2016-09-17] MEDS ORDERED: Diltiazem IV VIAL* 125 MG in D5W 100 ML BAG* 100 ML IV ONE ×2 (15:31→15:43)
[2016-09-17] MEDS ORDERED: Diltiazem IV VIAL* 125 MG/25 ML VIAL ONE (17:47)
[2016-09-17] MEDS: Diltiazem IV VIAL* 125 MG in D5W 100 ML BAG* 100 ML IV SCH (18:02)
[2016-09-17] MEDS ORDERED: Metoprolol Succinate XL TAB* 25 MG PO SCH (20:00)
[2016-09-18 05:35] LABS: Hematocrit 25 % (35-47); Hemoglobin 8.3 g/dl (12.0-16.0); Mean Corpuscular HGB Conc 34 g/dl (31-36); Mean Corpuscular Hemoglobin 30 pg (27-31); Mean Corpuscular Volume 90 fL (80-97); Mean Platelet Volume 7 um3 (7.4-10.4); Red Blood Count 2.77 10^6/ul (4.0-5.4); Red Cell Distribution Width 18 % (10.5-15); White Blood Count 9.4 10^3/ul (3.5-10.8)
[2016-09-18 05:52] LABS: Digoxin 1.8 ng/ml (0.8-2.0)
[2016-09-18 05:53] LABS: BUN/Creatinine Ratio 14.8 (8-20); Calcium 7.4 mg/dL (8.6-10.3); EGFR African American 42.9 (>60); EGFR Non-African American 33.3 (>60); Potassium 3.9 mmol/L (3.5-5.0)
[2016-09-18 05:56] LABS: Troponin I 0.03 ng/mL (<0.04)
[2016-09-18] MEDS: Levothyroxine TAB* 88 MCG TAB PO SCH (06:03)
[2016-09-18] MEDS: Docusate CAP* 100 MG PO SCH (08:06)
[2016-09-18] MEDS: Clopidogrel TAB* 75 MG PO SCH (08:06)
[2016-09-18] MEDS: Metoprolol Succinate XL TAB* 50 MG PO SCH (08:06)
[2016-09-18] MEDS: ceFUROXime TAB(*) 250 MG PO SCH (08:06)
[2016-09-18] MEDS: Ferrous Sulfate TAB* 325 MG PO SCH ×2 (08:06→08:10)
[2016-09-18] MEDS: Atorvastatin* 80 MG TAB PO SCH (08:06)
[2016-09-18] MEDS: Aspirin EC Low Dose* 81 MG TAB.EC PO SCH (08:06)
--- NOTE | 2016-09-18 08:36 | RAD ---
INDICATION: Abdominal distention evaluate for bowel obstruction. COMPARISON: Comparison is made with a prior CT of the abdomen and pelvis from September 15, 2016. TECHNIQUE: Frontal supine films of the abdomen were obtained. FINDINGS: There is moderate distention of several central small bowel loops. The colon is nondistended. These findings appear unchanged from the prior CT study. There are bilateral percutaneous ureteral stents present. No significant abnormal calcifications are seen. IMPRESSION: MODERATE SMALL BOWEL DISTENTION SUGGESTIVE OF A PARTIAL SMALL BOWEL OBSTRUCTION LESS LIKELY PARALYTIC ILEUS, UNCHANGED.
[2016-09-18] MEDS ORDERED: Digoxin TAB* 0.125 MG PO ONE (09:00)
[2016-09-18] MEDS ORDERED: Diltiazem CD CAP* 120 MG PO SCH (09:00)
--- NOTE | 2016-09-18 09:34 | DS ---
- Discharge Summary TRANSFER SUMMARY ADMIT DATE: 09/15/16 DISCHARGE/TRANSFER DATE:09/18 DISCHARGE DIAGNOSIS: 1. partial small bowel obstruction 2. afib w RVR, currently controlled on cardizem drip 3. vaginal bleeding, currently stopped 4. postoperative anterior pelvis fluid collection 5. bladder cancer sp radical cystectomy DISCHARGE MEDICATIONS: Aspirin (Aspirin Ec Low Dose*) 81 mg PO DAILY [facility] Last Admin: 09/18/16 08:06 Dose: 81 mg Atorvastatin Calcium (Lipitor*) 80 mg PO DAILY [facility] Last Admin: 09/18/16 08:06 Dose: 80 mg Cefuroxime Axetil (Ceftin Tab(*)) 500 mg PO Q12H [facility] Last Admin: 09/18/16 08:06 Dose: 500 mg Clopidogrel Bisulfate (Plavix Tab*) 75 mg PO DAILY [facility] Last Admin: 09/18/16 08:06 Dose: 75 mg Guaifenesin/Dextromethorphan (Robitussin Dm*) 10 ml PO Q4H PRN PRN Reason: COUGH Last Admin: 09/17/16 00:05 Dose: 10 ml Heparin Sodium (Porcine) (Heparin Flush Port (Ivad)) 5 ml FLUSH DAILY [facility] PRN Reason: Protocol Last Admin: 09/18/16 08:07 Dose: Not Given Diltiazem HCl 125 mg/ Dextrose 125 mls @ 5 mls/hr IV PER RATE [facility] PRN Reason: 5 MG/HR Last Admin: 09/17/16 18:02 Dose: 5 mls/hr Levothyroxine Sodium (Synthroid Tab*) 88 mcg PO DAILY@0600 [facility] Last Admin: 09/18/16 06:03 Dose: 88 mcg Metoprolol Succinate (Toprol Xl Tab*) 50 mg PO DAILY [facility] Last Admin: 09/18/16 08:06 Dose: 50 mg Metoprolol Succinate (Toprol Xl Tab*) 25 mg PO 1999 [facility] Last Admin: 09/17/16 20:39 Dose: 25 mg Ondansetron HCl (Zofran Inj*) 4 mg IV Q6H PRN PRN Reason: NAUSEA Last Admin: 09/17/16 10:47 Dose: 4 mg Polyethylene Glycol/Electrolytes (Miralax*) 17 gm PO DAILY PRN PRN Reason: CONSTIPATION Last Admin: 09/17/16 08:34 Dose: 17 gm PERTINENT LABS: Microbiology 09/15/16 16:35 Blood Venous Blood Culture - Final 09/15/16 16:35 Blood Venous Blood Culture - Final 09/15/16 16:35 Blood Venous Aerobic Blood Culture - Preliminary 09/15/16 16:35 Blood Venous Anaerobic Blood Culture - Preliminary No Growth Day 2 No Growth Day 2 09/15/16 16:35 Blood Venous Aerobic Blood Culture - Preliminary 09/15/16 16:35 Blood Venous Anaerobic Blood Culture - Preliminary No Growth Day 2 No Growth Day 2 Laboratory Tests 09/15/16 09/15/16 09/16/16 16:05 16:05 19:20 WBC 17.4 H Hgb 7.6 L Hct 23 L Plt Count 252 Neut % (Auto) 91.1 H INR (Anticoag Therapy) 2.83 H 1.17 H Sodium Potassium Chloride Carbon Dioxide Anion Gap BUN Creatinine Calcium AST ALT Alkaline Phosphatase Troponin I B-Natriuretic Peptide Total Protein Albumin TSH Digoxin 09/16/16 09/17/16 09/17/16 19:20 05:45 15:40 WBC Hgb Hct Plt Count Neut % (Auto) INR (Anticoag Therapy) Sodium Potassium Chloride Carbon Dioxide Anion Gap BUN Creatinine Calcium AST 23 ALT 14 Alkaline Phosphatase 91 Troponin I 0.05 H* B-Natriuretic Peptide 157 H Total Protein 4.9 L Albumin 2.2 L TSH 2.13 Digoxin 09/17/16 09/18/16 09/18/16 15:40 05:25 05:25 WBC 9.4 Hgb 8.3 L Hct 25 L Plt Count 221 Neut % (Auto) INR (Anticoag Therapy) Sodium 125 L Potassium 3.9 Chloride 102 Carbon Dioxide 19 L Anion Gap 4 BUN 22 Creatinine 1.49 H Calcium 7.4 L AST ALT Alkaline Phosphatase Troponin I 0.04 H* 0.03 B-Natriuretic Peptide Total Protein Albumin TSH Digoxin 1.8 ct a/p: PELVIC FLUID COLLECTION MEASURING 6.2 X 6.2 X 6.3 CM IN THE CYSTECTOMY SITE SUSPICIOUS FOR EITHER POSTOPERATIVE COLLECTION OR EARLY ABSCESS FORMATION. MODERATELY DISTENDED LOOPS OF SMALL BOWEL WHICH MAY REPRESENT ADYNAMIC ILEUS. SMALL MOUNT OF ASCITES IS NOTED. THERE IS A RIGHT LOWER QUADRANT ILEAL LOOP NOTED. BILATERAL URETERAL STENTS ARE PRESENT HOSPITAL COURSE: See full admit H+P for full details. briefly 86 yo F w locally advanced bladder CA sp minimal neoadjuvant chemotherapy (poorly tolerated) followed by radical cystectomy on 09/01. Postoperative course was complicated by an acute ND requiring stent on 09/[address] Rose as well as a small bowel obstruction. She last had a "good" BM on 09/12. She was discharged 09/13 with scant bloody vaginal discharge. On 09/15 she vomited after eating. Later in the day she developed "gushing" bright red blood per vagina. In the ER she was noted to have a Hb of 7.4 from 8.9 on discharge per her report. Internal exam initially revealed a clot but then no active bleeding. There was whitish bulging of the anterior wall that seemed tense. She was transfused 2 U prbc and given vitamin K to reverse her coumadin and her Hb remained stable. Her vaginal bleeding stopped. I did speak with Dr. Rose who advised keeping the plavix and aspirin if at all possible. On 09/16 she developed afib w RVR to 190s. She had vague chest discomfort vs. sense of poor overall health. EKG was unchanged. She was seen in consultation by cardiology and over the next 48 hours her rate was eventually controlled with a digoxin load, increasing her metoprolol and a cardizem drip. Her initial troponin was 0.05 which then normalized. She did develop left jaw and shoulder discomfort acutely that also resolved acutely and she though was related to moving wrong. She had one very small BM on the day of admission and none since. She vomited once on the . She was initially VERY hesitant to accept transfer to [place] but did agree on the day of transfer given the postop ileus vs. bowel obstruction, fluid collection and cardiac issues. Given her presumed poor PO absorption with her bowel obstruction she was transferred on IV cardizem. >30 mins spent on this discharge >50% in face to face counseling.
[2016-09-18] MEDS: Morphine INJ* 2 MG/ML 1 ML SYRINGE IV PRN ×2 (12:24→19:17)
--- NOTE | 2016-09-18 12:54 | ECHO ---
Patient: NIRU GARCIA [facility] Rec#: [id number] : 1930 Date: 09/18/2016 Age: 86y Height: 165.1 cm / 65.0 in Weight: 59 kg / 130.0 lbs Sex: F BSA: 1.7 Room#: 434 Admit Date#: 09/15/2016 Type: Inpatient Referring: Rolando Iglesias MD Reading: Rolando Iglesias MD Licensing And Registration Director: Concepción Arreola, RN RDCS CC: Luigi SAUER,Marlene Walton Transthoracic Echocardiogram Indication: Chest pain, recent HI with PCI BP: 110/43 HR: 72 Rhythm: A-Fib Findings History: Chronic A. fib, pacemaker implantation 2013, hypothyroidism, endometrial cancer, bladder cancer, recent cystectomy, recent HI with stent to left circumflex artery 09/06/2016 Technical Comments: The study quality is good. Completed at 1245. Left Ventricle: The left ventricular chamber size is normal. Mild concentric left ventricular hypertrophy is observed.Sigmoid septum without significant obstruction. Global left ventricular wall motion and contractility are within normal limits. The left ventricle appears hyperdynamic. The estimated ejection fraction is 60-65%. There is abnormal ventricular septal wall motion consistent with right ventricular pacemaker. The assessment of diastolic function is non-diagnostic. Left Atrium: The left atrium is severely dilated. Right Ventricle: The right ventricular cavity size is normal. The right ventricular global systolic function is normal. A pacemaker wire is visualized in the right ventricle. Right Atrium: The right atrial cavity size is severely dilated. A pacemaker wire is visualized in the right atrium. Aortic Valve: The aortic valve is trileaflet. The aortic valve leaflets are mildly thickened. Systolic excursion of the non coronary cusp is reduced. The aortic valve leaflets appear mildly sclerotic. There is aortic annular calcification. There is mild aortic regurgitation. There is borderline aortic stenosis present. Mitral Valve: The mitral valve leaflets are mildly thickened. There is mild to moderate mitral regurgitation. There is no evidence of mitral stenosis. Tricuspid Valve: The tricuspid valve leaflets are normal. There is moderate tricuspid regurgitation. There is evidence of mild pulmonary hypertension. There is no tricuspid stenosis. Pulmonic Valve: The pulmonic valve appears normal. There is a trace pulmonic regurgitation. There is no pulmonic stenosis. Pericardium: There is no significant pericardial effusion. Aorta: There is no dilatation of the ascending aorta. There is no dilatation of the aortic arch. There is no dilation of the aortic root. Pulmonary Artery: The main pulmonary artery appears normal. Venous: The inferior vena cava appears normal in size. There is a greater than 50% respiratory change in the inferior vena cava dimension. Summary: There was not any prior study for comparison. Conclusions Mild concentric left ventricular hypertrophy is observed. Sigmoid septum without significant obstruction. The left ventricle appears hyperdynamic. The estimated ejection fraction is 60-65%. There is abnormal ventricular septal wall motion consistent with right ventricular pacemaker. The left atrium is severely dilated. The aortic valve leaflets appear mildly sclerotic. Systolic excursion of the non coronary cusp is reduced. There is mild aortic regurgitation. There is borderline aortic stenosis present. There is mild to moderate mitral regurgitation. (may be underestimated given the large LA size). There is moderate tricuspid regurgitation. There is evidence of mild pulmonary hypertension. There is a trace pulmonic regurgitation. Measurements Name Value Normal Range RVDdMajor (2D) 3.5 cm (2.2 - 4.4) RAd ISD 4CH 7.1 cm (3.4 - 4.9) RA (A4C)W 4.1 cm (2.9 - 4.6) IVSd (2D) 1.2 cm (0.6 - 1) LVPWd (2D) 1.2 cm (0.6 - 1) LVIDd (2D) 4.3 cm (3.6 - 5.4) LVIDs (2D) 2.8 cm - LV FS (2D) 34 % (25 - 45) Aortic Annulus 2.2 cm (1.4 - 2.6) Ao root diameter (2D) 3.1 cm (2.1 - 3.5) Ascending Ao 2.8 cm (2.1 - 3.4) Aortic arch 2.3 cm (1.8 - 3.4) LA dimension (AP) 2D 4.4 cm (2.3 - 3.8) LAd ISD 4CH 7.4 cm (2.9 - 5.3) LA ISD 4CH W 4.9 cm (2.5 - 4.5) Name Value Normal Range LA ESV SP 4CH (A/L) 95 ml - LA ESV SP 2CH (A/L) 88 ml - LA ESV BP (A/L) 99 ml - LA ESV BP (A/L) index 60.2 ml/m2 - LA ESV SP 4CH (MOD) 90 ml - LA ESV SP 2CH (MOD) 84 ml - Name Value Normal Range MV E-wave Vmax 0.8 m/sec - MV deceleration time 180 msec - LV septal e' Vmax 0.12 m/sec - LV lateral e' Vmax 0.11 m/sec - LV E:e' septal ratio 6.7 ratio - LV E:e' lateral ratio 7.3 ratio - Name Value Normal Range AV Vmax 1.9 m/sec - AV VTI 31.2 cm - AV peak gradient 13 mmHg - AV mean gradient 8 mmHg - LVOT diameter 2 cm - LVOT Vmax 1.2 m/sec - LVOT VTI 19 cm - LVOT peak gradient 5 mmHg - LVOT mean gradient 3 mmHg - DOI (VTI) 0.6 ratio - MERLINE (continuity Vmax) 2 cm2 - MERLINE (continuity VTI) 1.9 cm2 - MOSHE Vmax 1 m/sec - Name Value Normal Range TR Vmax 3.1 m/sec - TR peak gradient 38 mmHg - RAP 3 mmHg - RVSP 41 mmHg - IVC diameter 1.6 cm - Name Value Normal Range PV Vmax 1 m/sec -
[2016-09-18 15:55] VITALS: BP 112/48
[2016-09-18] MEDS: Diltiazem IV VIAL* 125 MG in D5W 100 ML BAG* 100 ML IV SCH (16:15)
== END 2016-09-18 21:00 | disposition short-term general hospital (02) | DRG 281 ==
LOC: ED 15:38 → MEDTELE 19:00 → OBSVTOIN 09-17 10:00
PROVIDERS: ADMIT Internal Medicine Hematology & Oncology; ATTEND Internal Medicine Hematology & Oncology
DX: I48.91 Unspecified atrial fibrillation (principal); I21.3 ST elevation (STEMI) myocardial infarction of unspecified site; N99.842 Postprocedural seroma of a genitourinary system organ or structure following a genitourinary system procedure; I11.0 Hypertensive heart disease with heart failure; K56.69 Other intestinal obstruction; I95.9 Hypotension, unspecified; I34.1 Nonrheumatic mitral (valve) prolapse; I50.9 Heart failure, unspecified; Y83.8 Other surgical procedures as the cause of abnormal reaction of the patient, or of later complication, without mention of misadventure at the time of the procedure; Z95.5 Presence of coronary angioplasty implant and graft; Z95.0 Presence of cardiac pacemaker; E03.9 Hypothyroidism, unspecified; M81.0 Age-related osteoporosis without current pathological fracture; I25.10 Atherosclerotic heart disease of native coronary artery without angina pectoris; M19.90 Unspecified osteoarthritis, unspecified site; Z85.89 Personal history of malignant neoplasm of other organs and systems; Z85.51 Personal history of malignant neoplasm of bladder; N30.20 Other chronic cystitis without hematuria; Z80.3 Family history of malignant neoplasm of breast; Z79.82 Long term (current) use of aspirin; R00.0 Tachycardia, unspecified; T45.515A Adverse effect of anticoagulants, initial encounter
CPT/HCPCS: 36415; 71010; 74000; 74176; 80048; 80053; 80162; 81003; 81015; 82550; 83605; 83690; 83880; 84443; 84484; 85025; 85610; 85730; 86140; 86850; 86900; 86901; 86922; 87040; 87077; 87086; 87106; 87186; 93005; 93306; 93970; 99223; 99233; 99239; A9270-GY; G0378; J1160; J1642; J2270; J2405; P9040

== ENCOUNTER 2016-10-31 01:37 | Emergency (ER) | payer MEDICARE, OTHER ==
[2016-10-31] MEDS ORDERED: NS 0.9% 1000 ML* 1,000 ML IV ONE (02:20)
[2016-10-31] MEDS ORDERED: Ondansetron INJ* 2 MG/ML VIAL IV ONE (02:22)
[2016-10-31] MEDS ORDERED: Morphine INJ* 4 MG/ML 1 ML SYRINGE IV ONE (02:22)
[2016-10-31 03:15] LABS: Hematocrit 22 % (35-47); Hemoglobin 7.3 g/dl (12.0-16.0); Mean Corpuscular HGB Conc 33 g/dl (31-36); Mean Corpuscular Hemoglobin 32 pg (27-31); Mean Corpuscular Volume 96 fL (80-97); Mean Platelet Volume 7 um3 (7.4-10.4); Red Blood Count 2.31 10^6/ul (4.0-5.4); Red Cell Distribution Width 21 % (10.5-15)
[2016-10-31 03:29] LABS: Albumin 3.6 g/dL (3.2-5.2); BUN/Creatinine Ratio 13.6 (8-20); Calcium 8.8 mg/dL (8.6-10.3); EGFR African American 37.1 (>60); EGFR Non-African American 28.8 (>60); Globulin 2.5 g/dL (2-4); Potassium 3.9 mmol/L (3.5-5.0); Total Bilirubin 0.5 mg/dL (0.2-1.0); Total Protein 6.1 g/dL (6.4-8.9)
[2016-10-31 03:30] LABS: Troponin I 0.02 ng/mL (<0.04)
[2016-10-31 04:40] LABS: Urine Bacteria 1+ (Absent); Urine Bilirubin Negative (Negative); Urine Glucose Negative (Negative); Urine Nitrite Positive (Negative)
[2016-10-31] MEDS ORDERED: Levofloxacin TAB* 500 MG PO ONE (05:00)
[2016-10-31 05:03] VITALS: BP 120/78
--- NOTE | 2016-10-31 05:16 | ED ---
Rodrigue Key Aidan, scribed for Devan Albert on 10/31/16 at 0230 . Abdominal Pain/Female - HPI Summary HPI Summary: 86 y/o female presents to the ED with a complaint of acute, constant, moderate ( 7/10) back pain at the sides of her lower back as well as acute, constant, moderate lower abdominal pain described as cramping. BM and vomiting slightly alleviated her abdominal pain, however, Tylenol did not alleviate any pain. Earlier today, she had a CT scan because on September 01 she had her bladder removed (as a result of CA). Hx of hysterectomy. Pt has a pacemaker. - History of Current Complaint Chief Complaint: EDGeneral Stated Complaint: VOMITING/NAUSEA/RIGHT SIDED PAIN Time Seen by Provider: 10/31/16 02:03 Hx Obtained From: Patient Onset/Duration: Sudden Onset, Lasting Hours, Still Present Timing: Constant Severity Initially: Moderate Severity Currently: Moderate Pain Intensity: 8 - On exampination Pt specified 7/10 Pain Scale Used: 0-10 Numeric Location: Discrete At: RLQ, Discrete At: LLQ Radiates to: Back - Pt also mentions having lower back pain at the sides of her back Character: Cramping Aggravating Factor(s): Other: - unknown Alleviating Factor(s): Vomiting, Bowel Movement, Other: - Ibuprofen did not alleviate her pain Allergies/Adverse Reactions: Allergies Allergy/AdvReac Type Severity Reaction Status Date / Time No Known Allergies Allergy Verified 10/31/16 01:42 PMH/Surg Hx/FS Hx/Imm Hx Endocrine/Hematology History: Reports: Hx Thyroid Disease, Hx Anemia - 01/15/16 admission R/T HEMORRHAGE COLON Denies: Hx Diabetes Cardiovascular History: Reports: Hx Congestive Heart Failure - prior to pacer- no s/s since, Hx Coronary Artery Disease, Hx Hypertension, Hx Pacemaker/ICD - LAURITA TACHY DISORDER, Hx Valvular Heart Disease - MVP, Other Cardiovascular Problems/Disorders - Afib Respiratory History: Denies: Hx Asthma, Hx Chronic Obstructive Pulmonary Disease (COPD) GI History: Reports: Hx Gastrointestinal Bleed, Other GI Disorders - HX OF LOWER GI BLEED, 12/2015 Denies: Hx Ulcer History: Reports: Other Problems/Disorders - UROSTOMY, BLADDER CA Denies: Hx Kidney Stones - pt. 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 crainial surgery for "hole", plate insertion, 1998 [facility] PACEMAKER 2013 [facility] Hx Anesthesia Reactions: No - Immunization History Date of Tetanus Vaccine: 2014 Date of Influenza Vaccine: 03/29/15 Infectious Disease History: No Infectious Disease History: Denies: Hx Hepatitis, Hx Human Immunodeficiency Virus (HIV), Traveled Outside the [place] in Last 30 Days - Family History Known Family History: Positive: Unknown - Social History Occupation: Retired Lives: With Family Alcohol Use: Occasionally Alcohol Amount: WINE AT DINNER TIME Substance Use Type: Reports: None Substance Use Comment - Amount & Last Used: prescription drugs Hx Tobacco Use: No Smoking Status (MU): Never Smoked Tobacco Have You Smoked in the Last Year: No Review of Systems Constitutional: Negative Eyes: Negative ENT: Negative Cardiovascular: Negative Respiratory: Negative Positive: Abdominal Pain, Vomiting. Negative: Diarrhea, Nausea Genitourinary: Negative Positive: Arthralgia - back pain. Negative: Myalgia, Decreased ROM, Edema Skin: Negative Neurological: Negative Psychological: Normal All Other Systems Reviewed And Are Negative: Yes Physical Exam Triage Information Reviewed: Yes Vital Signs On Initial Exam: Initial Vitals Temp Pulse Resp BP Pulse Ox 98.7 F 67 20 120/87 100 10/31/16 01:39 10/31/16 01:39 10/31/16 01:39 10/31/16 01:39 10/31/16 01:39 Vital Signs Reviewed: Yes Appearance: Positive: Well-Appearing, No Pain Distress Skin: Positive: Warm, Skin Color Reflects Adequate Perfusion, Dry Head/Face: Positive: Normal Head/Face Inspection Eyes: Positive: Normal ENT: Positive: Normal ENT inspection Neck: Positive: Supple, Nontender Respiratory/Lung Sounds: Positive: Clear to Auscultation, Breath Sounds Present Cardiovascular: Positive: Other - pacemaker Abdomen Description: Positive: Soft, Other: - RLQ and LLQ tenderness Bowel Sounds: Positive: Present Musculoskeletal: Positive: Normal, Pain @ - back pain Neurological: Positive: Normal Psychiatric: Positive: Affect/Mood Appropriate Diagnostics - Vital Signs Vital Signs Temp Pulse Resp BP Pulse Ox 10/31/16 01:42 98.7 F 69 20 120/87 100 10/31/16 01:39 98.7 F 67 20 120/87 100 - Laboratory Result Diagrams: 10/31/16 03:00 10/31/16 03:00 Lab Statement: Any lab studies that have been ordered have been reviewed, and results considered in the medical decision making process. - EKG EKG 0323 Cardiac Rate: NL - 65 bpm EKG Interpretation: PACED RHYTHM Abdominal Pain Fem Course/Dx - Course Course Of Treatment: This is an 86 y/o female presenting with RLQ and LLQ pain as well as low back pain. On examination, she was tender to the RLQ and LLQ. Additionally, she has a pacemaker. labs showed anemia. Urine showed UTI. The patient was given morphine and feels better now. She will be discharged with antibiotics. She does not wish to be admitted for a blood transfusion. - Diagnoses Provider Diagnoses: UTI (urinary tract infection), Anemia, History of bladder cancer Discharge - Discharge Plan Condition: Stable Disposition: HOME Discharge Disposition Comment: Please follow up with your primary care provider within 2 days. Prescriptions: Levofloxacin TAB* [Levaquin TAB*] 500 mg PO DAILY #6 tab Patient Education Materials: Anemia (ED), Urinary Tract Infection in Women (ED) The documentation as recorded by the Rodrigue minor Aidan accurately reflects the service I personally performed and the decisions made by , Devan Albert.
== END 2016-10-31 05:20 | disposition home or self-care (01) ==
LOC: ED 01:37
DX: N39.0 Urinary tract infection, site not specified (principal); D64.9 Anemia, unspecified; R11.2 Nausea with vomiting, unspecified; R10.84 Generalized abdominal pain; M54.5 Low back pain; Z85.3 Personal history of malignant neoplasm of breast
CPT/HCPCS: 36415; 80053; 81003; 81015; 83690; 84484; 85025; 85610; 85730; 86850; 86900; 86901; 86922; 87077; 87086; 87186; 93005; 96374; 96375; 99283; J2270; J2405; P9040

== ENCOUNTER 2017-08-14 11:31 | Inpatient (IN) | payer MEDICARE, OTHER ==
--- OUTSIDE RECORDS SUMMARY | 2017-08-14 12:58 | XMS REPORT ---
:1930 External Reference #:[id number] Author Organization [facility] Address [address] [address] Phone [phone] Care Team Providers Name Role Phone Tunde David MD Care Team Information Belt Glass Sander Unavailable Francisco Angelo MD Primary Care Physician Unavailable Payers Type Date Identification Numbers Payment Provider Subscriber Medicare Primary Effective: Policy Number: Medicare Niru Garcia 1995 [id number] PayID: [id number] [address] [place] [address] Commercial Policy Number: [id number] Lifetime Benefit Solution Niru Garcia Group Number: [id number] [address] PayID: [place] [address] Medigap Part B Expires: 2014 Policy Number: iloho Niru Garcia [id number] Group Number: [id number] [address] PayID: [place] [address] Problems Date Description Provider Status Onset: 11/02/2014 Tibialis tendinitis Braeden Forbes M.D. Active Onset: 12/31/2016 Chronic atrial fibrillation Martin Barnett M.D. Active Onset: 12/31/2016 Coronary arteriosclerosis Martin Barnett M.D. Active Onset: 12/31/2016 Cardiac pacemaker in situ Martin Barnett M.D. Active Family History Date Family Member(s) Problem(s) Comments General Heart Disease General Cancer Social History Type Date Description Comments Lives With spouse Occupation Retired ETOH Use Drinks Alcoholic Beverages Occasionally Smoking Patient has never smoked Recreational Drug Use Denies Drug Use Daily Caffeine Comsumes on average 1 cup of decaff coffee per day Exercise Type/Frequency Does not exercise Allergies, Adverse Reactions, Alerts Date Description Reaction Status Severity Comments 10/25/2013 NKDA active Medications Medication Date Status Form Strength Qnty SIG Indications Ordering Provider Toprol XL 00/00/ Active 50mg one daily Unknown 0000 Atorvastatin 00/00/ Active Tablets 80mg 1/2 tablet Unknown Calcium 0000 po daily Clopidogrel 00/ Active Tablets 75mg 1 daily Unknown Bisulfate 0000 Digox 00/ Active Tablets 125mcg 1 by mouth Unknown 0000 every other day Levothyroxine 00/00/ Active Tablets 88mcg 1 by mouth Unknown Sodium 0000 every day Warfarin Sodium 0000/ Active Tablets 5mg 1/2 Unknown 0000 tablets daily or take as directed Magnesium Oxide / Active Tablets 400mg take 1 Unknown 0000 tablet by mouth twice a day Imodium A-D / Active as needed Unknown 0000 Colace 0000/ Active Capsules 100mg 1 tab by Unknown 0000 mouth 2-3 times a day as needed Coumadin 00/00/ Hx 5mg as Unknown 0000 directed Verelan PM 00/00/ Hx Unknown 0000 - 2014 Zocor 00/00/ Hx Unknown 0000 - 2014 Cozaar /00/ Hx Unknown 0000 - 2014 Simvastatin 00/00/ Hx Tablets 20mg 1 by mouth Unknown 0000 - every day 2016 Levothyroxine 00/00/ Hx Tablets 188mcg 1 by mouth Unknown Sodium 0000 - every day 2016 Verapamil HCL 00/00/ Hx Tablets 120mg 1 by mouth Unknown 0000 - every day 2016 Spironolactone 00/00/ Hx Tablets 25mg 1 by mouth Unknown 0000 - every day 2015 Vitamin D 00/00/ Hx Capsules 2000Unit 1 by mouth Unknown 0000 every day Calcium 00/00/ Hx Unknown 0000 Iron 00/00/ Hx Tablets 150mg 1 by mouth Unknown 0000 - every day 2016 Centrum Adults 00/00/ Hx Tablets once a day Unknown 0000 - 2016 Vitamin B-12 ER / Hx Tablets ER 3000mcg 1 by mouth Unknown 0000 - every day 2016 Poly-Iron 150 / Hx Capsules 150mg Unknown 0000 - 2017 Potassium / Hx Tablets ER 10Meq 1 qod Unknown Citrate ER 0000 - (1080 mg) 2016 Xifaxan / Hx Tablets 550mg 1 by mouth Unknown 0000 - twice a 2017 Medications Administered in Office Medication Date Status Form Strength Qnty SIG Indications Ordering Provider Depomedrol Administered Injection Martin 40MG 016 Deepti Cullen Celestone 3 mg Administered Injection Braeden and 3mg 015 Deepti Forbes Depomedrol Administered Injection Braeden 80MG 013 Deepti Forbes Depomedrol Administered Injection Braeden 80MG 013 Deepti Forbes Vital Signs Date Vital Result Comment 07/22/2017 Height 65 inches 5'5" Weight 123.00 lb without shoes Heart Rate 80 /min BP Systolic Sitting 124 mmHg Rue reg cuff BP Diastolic Sitting 60 mmHg Rue reg cuff BP Systolic Standing 128 mmHg Rue reg cuff BP Diastolic Standing 78 mmHg Rue reg cuff Respiratory Rate 16 /min BMI (Body Mass Index) 20.5 kg/m2 Ejection Fraction 60-65% date 09/18/16 ECHO 02/18/2017 Height 65 inches 5'5" Weight 125.75 lb Heart Rate 68 /min BP Systolic Sitting 138 mmHg Rue reg cuff BP Diastolic Sitting 78 mmHg Rue reg cuff BP Systolic Standing 142 mmHg Rue BP Diastolic Standing 86 mmHg Rue Respiratory Rate 16 /min BMI (Body Mass Index) 20.9 kg/m2 Ejection Fraction 60-65% 09/18/16 12/31/2016 Height 65 inches 5'5" Weight 122.50 lb with shoes Heart Rate 74 /min BP Systolic Sitting 138 mmHg Lue reg cuff BP Diastolic Sitting 84 mmHg Lue reg cuff BP Systolic Standing 134 mmHg Lue reg cuff BP Diastolic Standing 82 mmHg Lue reg cuff Respiratory Rate 15 /min BMI (Body Mass Index) 20.4 kg/m2 Ejection Fraction 60-65% 09/18/2016-echo 07/01/2016 Height 65 inches 5'5" Weight 135.00 lb Heart Rate 84 /min BP Systolic 112 mmHg BP Diastolic 68 mmHg Respiratory Rate 16 /min Body Temperature 97.4 F BMI (Body Mass Index) 22.5 kg/m2 11/28/2015 Height 66 inches 5'6" Weight 145.00 lb BP Systolic 126 mmHg BP Diastolic 68 mmHg Pain Level 6 BMI (Body Mass Index) 23.4 kg/m2 11/02/2014 Height 65 inches 5'5" Weight 146.00 lb Pain Level 6 BMI (Body Mass Index) 24.3 kg/m2 10/25/2014 Height 65 inches 5'5" Weight 146.00 lb Heart Rate 74 /min BP Systolic Sitting 141 mmHg BP Diastolic Sitting 77 mmHg Pain Level 4 BMI (Body Mass Index) 24.3 kg/m2 Results Test Date Test Result H/L Range Note Inr/Protime 07/06/2017 Inr 2.46 High 0.77-1.02 CBC Auto Diff 07/06/2017 White Blood Count 5.9 10^3/uL 3.5-10.8 Red Blood Count 2.70 10^6/uL Low 4.0-5.4 Hemoglobin 8.9 g/dL Low 12.0-16.0 Hematocrit 26 % Low 35-47 Mean Corpuscular Volume 98 fL High 80-97 Mean Corpuscular Hemoglobin 33 pg High 27-31 Mean Corpuscular HGB Conc 34 g/dL 31-36 Red Cell Distribution Width 14 % 10.5-15 Platelet Count 187 10^3/uL 150-450 Mean Platelet Volume 8 um3 7.4-10.4 Abs Neutrophils 4.1 10^3/uL 1.5-7.7 Abs Lymphocytes 1.0 10^3/uL 1.0-4.8 Abs Monocytes 0.7 10^3/uL 0-0.8 Abs Eosinophils 0.1 10^3/uL 0-0.6 Abs Basophils 0 10^3/uL 0-0.2 Abs Nucleated RBC 0 10^3/uL Granulocyte % 69.5 % 38-83 Lymphocyte % 17.6 % Low 25-47 Monocyte % 11.2 % High 1-9 Eosinophil % 1.2 % 0-6 Basophil % 0.5 % 0-2 Nucleated Red Blood Cells % 0 Comp Metabolic Panel 07/06/2017 Sodium 131 mmol/L Low 133-145 Potassium 4.5 mmol/L 3.5-5.0 Chloride 103 mmol/L 101-111 Co2 Carbon Dioxide 22 mmol/L 22-32 Anion Gap 6 mmol/L 2-11 Glucose 95 mg/dL 70-100 Blood Urea Nitrogen 33 mg/dL High 6-24 Creatinine 1.67 mg/dL High 0.51-0.95 BUN/Creatinine Ratio 19.8 8-20 Calcium 8.5 mg/dL Low 8.6-10.3 Total Protein 6.4 g/dL 6.4-8.9 Albumin 3.8 g/dL 3.2-5.2 Globulin 2.6 g/dL 2-4 Albumin/Globulin Ratio 1.5 1-3 Total Bilirubin 0.50 mg/dL 0.2-1.0 Alkaline Phosphatase 78 U/L 34-104 Alt 12 U/L 7-52 Ast 16 U/L 13-39 Egfr Non- 29.2 >60 Egfr 37.5 >60 1 Liver Function Panel 07/06/2017 Direct Bilirubin 0.10 mg/dL 0.03-0.18 Indirect Bilirubin 0.4 mg/dL 0.3-1.0 Laboratory test finding 07/06/2017 Magnesium 1.6 mg/dL Low 1.9-2.7 TSH (Thyroid Stim Horm) 0.45 mcIU/mL 0.34-5.60 Laboratory test finding 06/16/2017 Thyroxine 9.36 g/mL 6.09-12.23 CBC Auto Diff 05/18/2017 White Blood Count 7.0 10^3/uL 3.5-10.8 Red Blood Count 2.82 10^6/uL Low 4.0-5.4 Hemoglobin 9.6 g/dL Low 12.0-16.0 Hematocrit 28 % Low 35-47 Mean Corpuscular Volume 100 fL High 80-97 Mean Corpuscular Hemoglobin 34 pg High 27-31 Mean Corpuscular HGB Conc 34 g/dL 31-36 Red Cell Distribution Width 12 % 10.5-15 Platelet Count 174 10^3/uL 150-450 Mean Platelet Volume 7 um3 Low 7.4-10.4 Abs Neutrophils 5.5 10^3/uL 1.5-7.7 Abs Lymphocytes 0.9 10^3/uL Low 1.0-4.8 Abs Monocytes 0.5 10^3/uL 0-0.8 Abs Eosinophils 0 10^3/uL 0-0.6 Abs Basophils 0 10^3/uL 0-0.2 Abs Nucleated RBC 0 10^3/uL Granulocyte % 79.6 % 38-83 Lymphocyte % 13.0 % Low 25-47 Monocyte % 6.7 % 1-9 Eosinophil % 0.3 % 0-6 Basophil % 0.4 % 0-2 Nucleated Red Blood Cells % 0 Comp Metabolic Panel 05/18/2017 Sodium 134 mmol/L 133-145 Potassium 4.5 mmol/L 3.5-5.0 Chloride 102 mmol/L 101-111 Co2 Carbon Dioxide 25 mmol/L 22-32 Anion Gap 7 mmol/L 2-11 Glucose 114 mg/dL High 70-100 Blood Urea Nitrogen 37 mg/dL High 6-24 Creatinine 1.78 mg/dL High 0.51-0.95 BUN/Creatinine Ratio 20.8 High 8-20 Calcium 9.6 mg/dL 8.6-10.3 Total Protein 7.0 g/dL 6.4-8.9 Albumin 4.0 g/dL 3.2-5.2 Globulin 3.0 g/dL 2-4 Albumin/Globulin Ratio 1.3 1-3 Total Bilirubin 0.50 mg/dL 0.2-1.0 Alkaline Phosphatase 85 U/L 34-104 Alt 11 U/L 7-52 Ast 17 U/L 13-39 Egfr Non- 27.2 >60 Egfr 34.9 >60 2 Liver Function Panel 05/18/2017 Direct Bilirubin 0.10 mg/dL 0.03-0.18 Indirect Bilirubin 0.4 mg/dL 0.3-1.0 Laboratory test 05/18/2017 TSH (Thyroid Stim 0.55 mcIU/mL 0.34-5.60 finding Horm) Laboratory test 05/12/2017 Cytology Non-Recovery Collector SEE RESULT BELOW 3 finding Laboratory test 05/07/2017 Point of Care 98 mg/dL 70-100 4 finding Glucose CBC Auto Diff 04/22/2017 White Blood Count 6.8 10^3/uL 3.5-10.8 5 Red Blood Count 2.88 10^6/uL Low 4.0-5.4 5 Hemoglobin 9.9 g/dL Low 12.0-16.0 5 Hematocrit 29 % Low 35-47 5 Mean Corpuscular Volume 101 fL High 80-97 5 Mean Corpuscular Hemoglobin 34 pg High 27-31 5 Mean Corpuscular HGB Conc 34 g/dL 31-36 5 Red Cell Distribution Width 12 % 10.5-15 5 Platelet Count 147 10^3/uL Low 150-450 5 Mean Platelet Volume 9 um3 7.4-10.4 5 Abs Neutrophils 4.9 10^3/uL 1.5-7.7 5 Abs Lymphocytes 1.1 10^3/uL 1.0-4.8 5 Abs Monocytes 0.7 10^3/uL 0-0.8 5 Abs Eosinophils 0.1 10^3/uL 0-0.6 5 Abs Basophils 0 10^3/uL 0-0.2 5 Abs Nucleated RBC 0 10^3/uL 5 Granulocyte % 72.3 % 38-83 5 Lymphocyte % 16.2 % Low 25-47 5 Monocyte % 10.3 % High 1-9 5 Eosinophil % 0.7 % 0-6 5 Basophil % 0.5 % 0-2 5 Nucleated Red Blood Cells % 0 5 Comp Metabolic Panel 04/22/2017 Sodium 132 mmol/L Low 133-145 5 Potassium 4.1 mmol/L 3.5-5.0 5 Chloride 101 mmol/L 101-111 5 Co2 Carbon Dioxide 23 mmol/L 22-32 5 Anion Gap 8 mmol/L 2-11 5 Glucose 96 mg/dL 70-100 5 Blood Urea Nitrogen 32 mg/dL High 6-24 5 Creatinine 1.62 mg/dL High 0.51-0.95 5 BUN/Creatinine Ratio 19.8 8-20 5 Calcium 9.0 mg/dL 8.6-10.3 5 Total Protein 6.9 g/dL 6.4-8.9 5 Albumin 4.4 g/dL 3.2-5.2 5 Globulin 2.5 g/dL 2-4 5 Albumin/Globulin Ratio 1.8 1-3 5 Total Bilirubin 0.70 mg/dL 0.2-1.0 5 Alkaline Phosphatase 76 U/L 34-104 5 Alt 16 U/L 7-52 5 Ast 21 U/L 13-39 5 Egfr Non- 30.3 >60 5 Egfr 38.9 >60 5, 6 Laboratory test finding 04/22/2017 Magnesium 1.8 mg/dL Low 1.9-2.7 5, 7 1 Because ethnic data is not always readily available, this report includes an eGFR for both -Americans and non- Americans. The National Kidney Disease Education Program (NKDEP) does not endorse the use of the MDRD equation for patients that are not between the ages of 18 and 70, are , have extremes of body size, muscle mass, or nutritional status, or are non- or non-. According to the National Kidney Foundation, irrespective of diagnosis, the stage of the disease is based on the level of kidney function: Stage Description GFR(mL/min/1.73 m(2)) 1 Kidney damage with normal or decreased GFR 90 2 Kidney damage with mild decrease in GFR 60-89 3 Moderate decrease in GFR 30-59 4 Severe decrease in GFR 15-29 5 Kidney failure <15 (or dialysis) 2 Because ethnic data is not always readily available, this report includes an eGFR for both -Americans and non- Americans. The National Kidney Disease Education Program (NKDEP) does not endorse the use of the MDRD equation for patients that are not between the ages of 18 and 70, are , have extremes of body size, muscle mass, or nutritional status, or are non- or non-. According to the National Kidney Foundation, irrespective of diagnosis, the stage of the disease is based on the level of kidney function: Stage Description GFR(mL/min/1.73 m(2)) 1 Kidney damage with normal or decreased GFR 90 2 Kidney damage with mild decrease in GFR 60-89 3 Moderate decrease in GFR 30-59 4 Severe decrease in GFR 15-29 5 Kidney failure <15 (or dialysis) 3 SEE RESULT BELOW Name: NIRU GARCIA : [address]: Bayron Salmeron MD Acct: [id number] Unit: [id number] AGE: 86 Location: SP Re05/12/17 SEX: F Status: REG REF SPEC: [id number] CALI: 05/12/[address] [facility] [address]: Marlene Meyers MD REQ: [id number] RECD: 05/12/17 STATUS: SONIA QUACH DR: Bayron Waddell MD _ ORDERED: FNA-IMG GUID BX, CY ADEQ-ADDL P, LEVEL 4, CYTO ADEQ-1ST P, IMMUNO- FIRST, IMMUNO-ADDL FINAL DIAGNOSIS Left inguinal lymph node, Ultrasound guided, fine needle aspiration: -- Malignant- metastatic urothelial carcinoma. Comment: Immunochemical stains for p63 and cytokeratin 7 are performed with appropriate controls on formalin fixed cell block material. Both are strongly positive supporting the above rendered diagnosis. Dr. Miller has reviewed this case and concurs. A cell block was prepared in the evaluation of this specimen. Smears and cell block reveal similar findings. 1. INGUINAL - US GUIDED LEFT INGUINAL LYMPH NODE FINE NEEDLE ASPIRATION CLINICAL HISTORY Left inguinal lymph node. Bladder cancer 2016 IMMEDIATE INTERPRETATION Pass 1-inadequate, pass 2, and 3-adequate. CONTINUED ON NEXT PAGE * ML=Testing performed at Main Lab DEPARTMENT OF PATHOLOGY, [address] [place] [address] Ernesto Enriquez M.D. Director [facility] # [id number] RUN DATE: 05/14/17 [facility] LIVE PAGE 2 Patient: NIRU GARCIA [id number] (Continued) GROSS DESCRIPTION (Continued) GROSS DESCRIPTION Ultrasound guided, fine needle aspiration x 3 passes with 3 Alcohol fixed slide(s) and needle rinse in formalin for cell block. Signed (signature on file) Ernesto Enriquez MD 1730 END OF REPORT * ML=Testing performed at Main Lab DEPARTMENT OF PATHOLOGY, [address] [place] [address] Ernesto Enriquez M.D. Director [facility] # [id number] 4 Junior Programmer Analyst: [id number] Because ethnic data is not always readily available, this report includes an eGFR for both -Americans and non- Americans. The National Kidney Disease Education Program (NKDEP) does not endorse the use of the MDRD equation for patients that are not between the ages of 18 and 70, are , have extremes of body size, muscle mass, or nutritional status, or are non- or non-. According to the National Kidney Foundation, irrespective of diagnosis, the stage of the disease is based on the level of kidney function: Stage Description GFR(mL/min/1.73 m(2)) 1 Kidney damage with normal or decreased GFR 90 2 Kidney damage with mild decrease in GFR 60-89 3 Moderate decrease in GFR 30-59 4 Severe decrease in GFR 15-29 5 Kidney failure <15 (or dialysis) 7 [id number] Procedures Date CPT Code Description Status 04/23/2017 68816 Icd Eval Sing,Dual,Multi Lead Remote Recpt Transm Tech Completed Rev Tech S 04/23/2017 65388 Pacemaker Check Remote Up To 90Days Completed Single,Dual,Multiple Lead 01/06/2017 68668 Pace Maker Eval W/Iterative Adjustment Single Lead Completed 12/31/2016 66772 EKG Tracing & Interpretation Completed 09/18/2016 10621 ECHO Transthorasic Realtime 2D W Doppler & Color Completed Flow Hosp 09/18/2016 97143 EKG, Interpretation Only Completed 09/17/2016 19551 EKG, Interpretation Only Completed 09/16/2016 19309 EKG, Interpretation Only Completed 07/03/2016 96466 Insertion Tunneled Cent Venous Cathr W Subcut Port 5 Completed Yrs Or Oldr 07/03/2016 37091 Fluoroscopic Guidance For Cent Completed 04/24/2016 20482 EKG, Interpretation Only Completed 11/28/2015 79933 Inject Tendon Sheath Or Ligament Aponeurosis Eg Plantar Completed Fascia 11/02/2014 08022 Inject Tendon Sheath Or Ligament Aponeurosis Eg Plantar Completed Fascia 03/02/2013 56857 Inject/Drain Joint/Bursa Major Completed 10/07/2012 53075 Xray Knee 3 Views Completed 10/07/2012 57244 Rad Exam; Knee, Ap&L Completed 10/07/2012 14500 Inject/Drain Joint/Bursa Major Completed Encounters Type Date Location Provider CPT E/M Dx Office Visit 02/18/2017 [facility] Dasia Barnett 66898 I48.2 12:15p Jeri Tatum Z95.0 I25.10 Z79.01 Office Visit 12/31/2016 11:30a [facility] Dasia Barnett 39608 I48.2 Jeri Tatum R94.31 I25.10 Office Visit 11/18/2016 3:10p [facility] [place]ology Donato [place] [address] L43.8 H61.039 Office Visit 09/18/2016 3:57p [facility] Rolando Iglesias M.D. 58564 R07.9 R94.31 Office Visit 09/17/2016 12:30p [facility] Rolando Iglesias M.D. 70734 I48.2 R07.9 Office Visit 09/16/2016 8:50a [facility] Barnett, 36812 I48.2 Nuclear Physician MFredDFred Office Visit 07/01/2016 11:15a [facility] Domin[facility], 68056 C67.9 Nuclear Physician M.Jeffrey Office Visit 04/25/2016 1:08p [facility], Denise Garcia, N.P. 88405 N13.30 Hospitalists I48.91 I10 E03.9 Office Visit 04/24/2016 1:07p [facility]pc Denise Garcia N.P. 05021 N13.30 Hospitalists I48.91 I10 E03.9 Office Visit 04/23/2016 1:07p [facility], 82778 N13.30 Assoc, Hospitalists N.P. I48.91 I10 E03.9 Office Visit 01/23/2016 9:14a [facility],[place] [address] K57.91 Hospitalists D62 I10 Office Visit 01/22/2016 9:14a [facility] Aramis Hernandez M.D. 90850 K57.91 Hospitalists D62 I10 Office Visit 01/19/2016 10:47a [facility] Aramis Hernandez M.D. 14864 K57.31 Hospitalists D62 I48.91 I10 Office Visit 01/18/2016 10:46a [facility],syed Hernandez M.D. 08053 K57.31 Hospitalists D62 I48.91 I10 Office Visit 01/17/2016 10:46a [facility] Cordelia Hercules, 24597 K57.31 Hospitalists Deepti I48.91 I10 D62 Office Visit 01/16/2016 10:45a [facility] Cordelia Hercules, 72255 K92.2 Hospitalists Deepti I48.91 I10 Office Visit 01/15/2016 10:45a [facility] Elizabeth, 54845 K92.2 Assoc,pc CERTIFIED ORTHOTIST/PEDORTHIST Hospitalists I48.91 I10 Office Visit 11/28/2015 1:40p [facility], 74449 M76.822 C.M.Leo Tatum Office Visit 10/25/2014 11:30a [facility] Andrei, 85098 824.8 C.M.AFred Tatum 845.09 V45.01 Office Visit 03/02/2013 2:45p [facility] Forbes 87331 715.96 C.M.AFred Tatum Office Visit 12/17/2012 9:00a [facility] Rico Monique, 61116 733.13 Of Jeri Tatum Office Visit 10/07/2012 3:00p [facility] Forbes 29671 836.2 C.MNevaeh Tatum 836.1 715.96 Office Visit 02/21/2010 1:00p [facility] Forbes M.D. 07000 824.8 C.M.A. Office Visit 02/01/2010 10:00a [facility] Forbes M.D. 27309 824.8 C.M.A. Office Visit 01/11/2010 10:00a [facility] Forbes M.D. 52790 824.8 C.M.A. Plan of Care 07/22/2017 - Martin Barnett M.D.I48.2 Chronic atrial tjppsetaxzkmU43.0 Presence of cardiac hiaeeymzjU18.10 [facility]scl heart disease [place] coronary artery w/o ang pctrsFollow up:6 monthsRecommendations:Stop Plavix at the begining of August
[2017-08-14] MEDS: NS 0.9% 1000 ML* 1,000 ML IV SCH (14:29)
[2017-08-14 15:30] LABS: ABS Basophils 0 10^3/ul (0-0.2); ABS Eosinophils 0.1 10^3/ul (0-0.6); ABS Lymphocytes 0.6 10^3/ul (1.0-4.8); ABS Monocytes 0.6 10^3/ul (0-0.8); ABS Neutrophils 5.5 10^3/ul (1.5-7.7); ABS Nucleated RBC 0 10^3/ul; Eosinophil % 0.9 % (0-6); Hematocrit 29 % (35-47); Hemoglobin 9.7 g/dl (12.0-16.0); Mean Corpuscular HGB Conc 34 g/dl (31-36); Mean Corpuscular Hemoglobin 32 pg (27-31); Mean Corpuscular Volume 94 fL (80-97); Mean Platelet Volume 7 um3 (7.4-10.4); Nucleated Red Blood Cells % 0; Platelet Count 214 10^3/ul (150-450); Red Blood Count 3.08 10^6/ul (4.0-5.4); Red Cell Distribution Width 15 % (10.5-15); White Blood Count 6.8 10^3/ul (3.5-10.8)
[2017-08-14 15:36] LABS: INR 1.87 (0.77-1.02)
[2017-08-14] MEDS ORDERED: Alteplase (CATHFLO)* 2 MG VIAL IV ONE (16:00)
[2017-08-14 16:03] LABS: EGFR Non-African American 24.2 (>60)
--- NOTE | 2017-08-14 17:07 | RAD ---
INDICATION: 87-year-old with GI bleed. Past medical history significant for bladder carcinoma COMPARISON: PET scan July 23, 2017 TECHNIQUE: Noncontrast axial source images were acquired from the level hemidiaphragms to the symphysis pubis following menstruation of oral contrast only. The lack of intravenous contrast limits evaluation of the solid viscera. Lung bases: The lung bases are clear. There is cardiomegaly. There is a tiny pericardial effusion. There is pacemaker artifact. These findings are unchanged. Liver: There is hepatomegaly. Noncontrast imaging shows no evidence of a hepatic mass or ductal dilatation. Gallbladder: There are no calcified gallstones. There is no evidence of wall thickening or pericholecystic fluid.. Spleen: The spleen is normal in size. The noncontrast CT appearance is normal. Pancreas: Noncontrast imaging shows no pancreatic mass or ductal dilitation. Adrenal glands: No masses are identified. Kidneys/Bladder: There is no evidence of nephrolithiasis. There is bilateral hydronephrosis likely related to reflux in this patient with presumed ileal loop. Noncontrast imaging shows no evidence of a renal mass. The bladder is unremarkable.. Adenopathy: This examination is relatively insensitive in detecting adenopathy. There are findings that suggested intraperitoneal adenopathy on the recent PET scan. There is a large right inguinal mass which is previously noted to be hypermetabolic. This mass has increased in size in the short interval now measuring approximately 4.7 x 3.9 cm. There are several adjacent lymph nodes which are in the 0.5 to 1 cm range. There is also left inguinal lymphadenopathy appearing little changed. Fluid collections: There are no free or localized fluid collections. Vessels: The aorta and iliac vessels are ectatic and there is tortuosity. There are extensive intimal calcifications Pelvic organs: There is hysterectomy. There is no adnexal mass GI tract: The upper GI tract is grossly normal. The lower GI tract is remarkable for mucosal thickening of the rectum and sigmoid colon which could be related to a colitis. There are scattered diverticula. Soft tissues: No additional soft tissue abnormalities of the extraperitoneal abdomen or pelvis are identified. Osseous structures: There are no acute osseous findings. There is osteopenia with multiple mild compression deformities. The appearance unchanged IMPRESSION: 1. Cardiomegaly with tiny pericardial effusion, unchanged. 2. Hepatomegaly. 3. Bilateral ankle masses right greater than left with interval increase in size in the right inguinal mass. 4. Assessment scarring changes with arteriomegaly. 5. Ileal conduit. Bilateral hydronephrosis, unchanged. 6. Mucosal thickening of the rectum and sigmoid colon may be secondary to colitis. 7. Hysterectomy.
[2017-08-14] MEDS ORDERED: Lidocaine 2.5%/Prilocain 2.5%* 5 GM TUBE TOPICAL ONE (18:00)
--- NOTE | 2017-08-14 22:00 | CONS ---
CC: Dr. Meyers GASTROENTEROLOGY CONSULTATION: DATE OF CONSULTATION: 08/14/17 REFERRING PHYSICIAN: Dr. Meyers. HISTORY OF PRESENT ILLNESS: Thank you for asking me to see Mrs. Mendez. As you know, she is a p leasant 87-year-old female with a personal history of bladder cancer, status post resection, currentl y on chemotherapy, history of radiation therapy who noticed the onset of some bright red blood per re ctum on Thursday night, the amount was small and was bright red without rectal pain. She has been h aving chronic diarrhea and intermittent constipation after taking Imodium. Yesterday, she had a small bowel movement where she noted some maroon or black colored stool intermixed with brown stool. Ther e has been no further stool output. The patient was sent over by Dr. Meyers for direct admission. The patient does have prior history of diverticular bleeding where she was admitted for [address] ates in January. She currently denies any abdominal pain. She did receive a blood transfusion 2 week s ago. She has been having intermittent chronic anemia. PAST MEDICAL HISTORY: Significant for atrial fibrillation, coronary artery disease, status post peac emaker insertion, bladder cancer metastatic with recurrence, currently on chemotherapy, status post r esection. MEDICATIONS: Currently include: 1. Toprol. 2. Atorvastatin. 3. Plavix. 4. Digoxin. 5. Levothyroxine. 6. Coumadin. 7. Imodium p.r.n. 8. Colace p.r.n. ALLERGIES: No known drug allergies. SOCIAL HISTORY: The patient lives at home with her . There is no tobacco or alcohol abuse. FAMILY HISTORY: Significant for heart disease. REVIEW OF SYSTEMS: A 10-point review of systems is performed and is otherwise negative. PHYSICAL EXAMINATION: Mrs. Mendez is an elderly 87-year-old female. She is afebrile. Vital sig ns are stable. HEENT exam: There is no scleral icterus. Heart is regular rate and rhythm. Lungs ar e clear. Abdomen is soft. There is no tenderness. Bowel sounds are present. There is no distentio n. Skin is warm and dry. Extremities: Without cyanosis, clubbing, or edema. LABORATORY DATA: Pertinent laboratory studies include a white blood count of 6.8, hematocrit of 29, hemoglobin of 9.7, platelet count of 214. Of note, her hematocrit on 07/06/17 was 26. INR is pendin g. RECOMMENDATIONS: It appears that the patient's bleeding has stopped because she has not passed any s tools since yesterday afternoon. This may have been a spontaneously resolved diverticular bleed vers us possible ischemic colitis versus possible hemorrhoidal bleeding. At this point, her hematocrit is stable, although she may be somewhat dehydrated. The patient is scheduled to undergo abdominal pelv ic CAT scan with oral contrast only. We will monitor her stool output and hematocrit transfused as n eeded. Dr. Mcqueen is covering over the weekend and I will sign her out to him for followup. The pa sri's Coumadin is on hold now as well as her Plavix. Both should be held until we have further wor kup performed. [id number]/[facility] #: [id number]
[2017-08-15] MEDS: NS 0.9% 1000 ML* 1,000 ML IV SCH ×2 (02:25→12:44)
[2017-08-15] MEDS: Levothyroxine TAB* 88 MCG TAB PO SCH (05:26)
[2017-08-15 05:55] LABS: ABS Basophils 0 10^3/ul (0-0.2); ABS Eosinophils 0.2 10^3/ul (0-0.6); ABS Lymphocytes 0.9 10^3/ul (1.0-4.8); ABS Monocytes 0.7 10^3/ul (0-0.8); ABS Neutrophils 3.8 10^3/ul (1.5-7.7); ABS Nucleated RBC 0 10^3/ul; Eosinophil % 2.8 % (0-6); Hematocrit 24 % (35-47); Hemoglobin 8.2 g/dl (12.0-16.0); Mean Corpuscular HGB Conc 34 g/dl (31-36); Mean Corpuscular Hemoglobin 32 pg (27-31); Mean Corpuscular Volume 94 fL (80-97); Mean Platelet Volume 7 um3 (7.4-10.4); Nucleated Red Blood Cells % 0; Platelet Count 185 10^3/ul (150-450); Red Blood Count 2.59 10^6/ul (4.0-5.4); Red Cell Distribution Width 15 % (10.5-15); White Blood Count 5.6 10^3/ul (3.5-10.8)
[2017-08-15 06:00] LABS: INR 1.9 (0.77-1.02)
[2017-08-15 06:10] LABS: EGFR Non-African American 24.5 (>60)
[2017-08-15] MEDS: Atorvastatin* 20 MG TAB PO SCH (08:25)
[2017-08-15] MEDS: Metoprolol Succinate XL TAB* 50 MG PO SCH (08:25)
[2017-08-15] MEDS ORDERED: Loperamide CAP* 2 MG PO ONE (10:52)
[2017-08-16] MEDS: NS 0.9% 1000 ML* 1,000 ML IV SCH (01:50)
[2017-08-16] MEDS: Levothyroxine TAB* 88 MCG TAB PO SCH (05:27)
[2017-08-16 05:46] LABS: ABS Basophils 0 10^3/ul (0-0.2); ABS Eosinophils 0.2 10^3/ul (0-0.6); ABS Monocytes 0.7 10^3/ul (0-0.8); ABS Neutrophils 3.8 10^3/ul (1.5-7.7); ABS Nucleated RBC 0 10^3/ul; Eosinophil % 2.7 % (0-6); Hematocrit 26 % (35-47); Lymphocyte % 17.8 % (25-47); Mean Corpuscular HGB Conc 35 g/dl (31-36); Mean Corpuscular Hemoglobin 32 pg (27-31); Mean Corpuscular Volume 92 fL (80-97); Mean Platelet Volume 7 um3 (7.4-10.4); Nucleated Red Blood Cells % 0; Platelet Count 168 10^3/ul (150-450); Red Blood Count 2.83 10^6/ul (4.0-5.4); Red Cell Distribution Width 16 % (10.5-15); White Blood Count 5.7 10^3/ul (3.5-10.8)
[2017-08-16 08:49] VITALS: BP 122/64
[2017-08-16] MEDS: Atorvastatin* 20 MG TAB PO SCH (08:51)
[2017-08-16] MEDS: Metoprolol Succinate XL TAB* 50 MG PO SCH (08:51)
[2017-08-16] MEDS ORDERED: Digoxin TAB* 0.125 MG PO SCH (09:00)
== END 2017-08-16 13:09 | disposition home or self-care (01) | DRG 379 ==
LOC: MED 12:34
PROVIDERS: ADMIT Internal Medicine Hematology & Oncology; ATTEND Internal Medicine Hematology & Oncology
DX: K92.1 Melena (principal); I48.91 Unspecified atrial fibrillation; C67.9 Malignant neoplasm of bladder, unspecified; I25.10 Atherosclerotic heart disease of native coronary artery without angina pectoris; I11.9 Hypertensive heart disease without heart failure; K57.90 Diverticulosis of intestine, part unspecified, without perforation or abscess without bleeding; E03.9 Hypothyroidism, unspecified; Z85.89 Personal history of malignant neoplasm of other organs and systems; Z95.0 Presence of cardiac pacemaker; Z80.3 Family history of malignant neoplasm of breast; Z80.8 Family history of malignant neoplasm of other organs or systems; Z79.02 Long term (current) use of antithrombotics/antiplatelets; Z79.01 Long term (current) use of anticoagulants; Z79.899 Other long term (current) drug therapy
CPT/HCPCS: 36415; 74176; 80053; 85025; 85610; 86850; 86900; 86901; 86922; 99223; A9270-GY; J1642; J2997; P9040

== ENCOUNTER 2017-12-10 01:40 | Observation (INO) | payer MEDICARE, OTHER ==
[2017-12-10] MEDS ORDERED: NS 0.9% 1000 ML* 1,000 ML IV ONE (02:02)
[2017-12-10] MEDS ORDERED: Ondansetron INJ* 2 MG/ML VIAL IV ONE (02:04)
[2017-12-10 02:23] LABS: ABS Basophils 0 10^3/ul (0-0.2); ABS Eosinophils 0 10^3/ul (0-0.6); ABS Lymphocytes 0.3 10^3/ul (1.0-4.8); ABS Monocytes 0.5 10^3/ul (0-0.8); ABS Neutrophils 6.8 10^3/ul (1.5-7.7); ABS Nucleated RBC 0 10^3/ul; Eosinophil % 0.2 % (0-6); Hematocrit 28 % (35-47); Hemoglobin 9.4 g/dl (12.0-16.0); Lymphocyte % 3.3 % (25-47); Mean Corpuscular HGB Conc 34 g/dl (31-36); Mean Corpuscular Hemoglobin 34 pg (27-31); Mean Corpuscular Volume 100 fL (80-97); Mean Platelet Volume 7.7 um3 (7.4-10.4); Nucleated Red Blood Cells % 0; Platelet Count 177 10^3/ul (150-450); Red Blood Count 2.77 10^6/ul (4.00-5.40); Red Cell Distribution Width 17 % (10.5-15); White Blood Count 7.7 10^3/ul (3.5-10.8)
[2017-12-10 02:30] LABS: INR 1.84 (0.77-1.02)
[2017-12-10 02:39] LABS: EGFR Non-African American 24.7 (>60)
[2017-12-10 03:35] LABS: Urine Appearance Cloudy; Urine Blood 2+ (Negative); Urine Color Yellow; Urine Ketones Negative (Negative); Urine Protein 2+(100 mg/dL) (Negative); Urine Specific Gravity 1.011 (1.010-1.030); Urine Urobilinogen Negative (Negative)
[2017-12-10] MEDS ORDERED: Morphine VIAL* 4 MG/ML VIAL (1 ml vial) IV ONE (04:17)
[2017-12-10] MEDS ORDERED: NS 0.9% 1000 ML* 1,000 ML IV SCH (04:30)
[2017-12-10] MEDS ORDERED: Levofloxacin 500 MG IVPREMIX(* 500 MG/100 ML BAG IVPB ONE (04:48)
[2017-12-10] MEDS ORDERED: ValACYclovir (*) 1 GM TAB PO ONE (05:09)
[2017-12-10] MEDS ORDERED: predniSONE TAB* 20 MG PO ONE (05:09)
--- NOTE | 2017-12-10 05:33 | ED ---
Aisha Key Elizabeth, scribed for Jolynn Yates MD on 12/10/17 at 0225 . Abdominal Pain/Female - HPI Summary HPI Summary: This patient is an 87 year old F BIBA to [facility] with a chief complaint of abd pain since 14:00 yesterday. The patient rates the pain 5/10 in severity. Symptoms aggravated by nothing. Symptoms alleviated by nothing. Patient reports vomiting x5 dark brown, constipation, and diaphoresis. The patient reports a bowel movement this morning that was normal in appearance The patient is taking Coumadin and reports having radiation 2 weeks ago. Patient has hx of bladder cancer and has previously had a radical cystectomy in 2017 with a urostomy bag. - History of Current Complaint Chief Complaint: EDAbdPain Stated Complaint: ABD PAIN Time Seen by Provider: 12/10/17 01:46 Hx Obtained From: Patient, Family/Department Coordinator Onset/Duration: Gradual Onset, Lasting Hours - 12 hours, Still Present Timing: Intermittent Episode Lasting Severity Initially: Mild Severity Currently: Mild Pain Intensity: 5 Pain Scale Used: 0-10 Numeric Location: Diffuse Aggravating Factor(s): Nothing Associated Signs and Symptoms: Positive: Diaphoresis, Constipation, Vomiting Allergies/Adverse Reactions: Allergies Allergy/AdvReac Type Severity Reaction Status Date / Time No Known Allergies Allergy Verified 05/12/17 12:05 PMH/Surg Hx/FS Hx/Imm Hx Endocrine/Hematology History: Reports: Hx Thyroid Disease, Hx Anemia - 01/15/16 admission R/T HEMORRHAGE COLON Denies: Hx Diabetes Cardiovascular History: Reports: Hx Congestive Heart Failure - prior to pacer- no s/s since, Hx Coronary Artery Disease, Hx Hypertension, Hx Pacemaker/ICD - LAURITA TACHY DISORDER, Hx Valvular Heart Disease - MVP, Other Cardiovascular Problems/Disorders - Afib Respiratory History: Denies: Hx Asthma, Hx Chronic Obstructive Pulmonary Disease (COPD) GI History: Reports: Hx Gastrointestinal Bleed, Other GI Disorders - HX OF LOWER GI BLEED, 12/2015 Denies: Hx Ulcer History: Reports: Other Problems/Disorders - UROSTOMY, BLADDER CA Denies: Hx Kidney Stones - pt. 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 crainial surgery for "hole", plate insertion, 1998 [facility]. PACEMAKER 2013 [facility]; bladder removed with urostomy Hx Anesthesia Reactions: No - Immunization History Date of Tetanus Vaccine: 2014 Date of Influenza Vaccine: 03/29/15 Infectious Disease History: No Infectious Disease History: Denies: Hx Hepatitis, Hx Human Immunodeficiency Virus (HIV), Traveled Outside the [place] in Last 30 Days - Family History Known Family History: Positive: Unknown - Social History Alcohol Use: None Alcohol Amount: WINE AT DINNER TIME Substance Use Type: Reports: None Substance Use Comment - Amount & Last Used: prescription drugs Hx Tobacco Use: No Smoking Status (MU): Never Smoked Tobacco Have You Smoked in the Last Year: No Review of Systems Positive: Skin Diaphoresis. Negative: Fever Negative: Epistaxis Positive: Abdominal Pain, Vomiting, Other - constipation Genitourinary: Other - urostomy bag All Other Systems Reviewed And Are Negative: Yes Physical Exam - Summary Physical Exam Summary: VITAL SIGNS: Reviewed. GENERAL: Patient is a well-developed and nourished FEMALE who is lying comfortable in the stretcher. Patient is not in any acute respiratory distress. HEAD AND FACE: No signs of trauma. No ecchymosis, hematomas or skull depressions. No sinus tenderness. EYES: PERRLA, EOMI x 2, No injected conjunctiva, no nystagmus. EARS: Hearing grossly intact. Ear canals and tympanic membranes are within normal limits. MOUTH: Oropharynx within normal limits. NECK: Supple, trachea is midline, no adenopathy, no JVD, no carotid bruit, no c- spine tenderness, neck with full ROM. CHEST: Symmetric, no tenderness at palpation LUNGS: Clear to auscultation bilaterally. No wheezing or crackles. CVS: Regular rate and rhythm, S1 and S2 present, no murmurs or gallops appreciated. ABDOMEN: Ileal conduit with urine bag with clear urine in RLQ. Abdomen is distended with mild diffuse tenderness. Hyperactive bowel sounds RECTAL EXAM: Empty rectum, brown stool, no masses, no hemorrhoids, chronic indurated mass in right pelvis area. Witnessed by Jacinta EXTREMITIES: FROM in all major joints, no edema, no cyanosis or clubbing. NEURO: Alert and oriented x 3. No acute neurological deficits. Speech is normal and follows commands. SKIN: Dry and warm Triage Information Reviewed: Yes Vital Signs On Initial Exam: Initial Vitals Temp Pulse Resp BP Pulse Ox 97.9 F 90 18 136/76 98 12/10/17 01:48 12/10/17 01:48 12/10/17 01:48 12/10/17 01:48 12/10/17 01:48 Vital Signs Reviewed: Yes Diagnostics - Vital Signs Vital Signs Temp Pulse Resp BP Pulse Ox 12/10/17 01:48 97.9 F 90 18 136/76 98 - Laboratory Result Diagrams: 12/10/17 02:13 12/10/17 02:13 Lab Statement: Any lab studies that have been ordered have been reviewed, and results considered in the medical decision making process. - CT CT Abd/Pelvis CT Interpretation: Positive (See Comments) - Impression: positive for bowel obstruction. There are multiple dilated loops of small bowel with air-fluid levels. Dr. Yates has reviewed this report. CT Interpretation Completed By: Radiologist - EKG 02:11 Cardiac Rate: NL - at 89 bpm EKG Rhythm: Atrial Fibrillation EKG Interpretation: A-fib Abdominal Pain Fem Course/Dx - Course Course Of Treatment: Patient is an 87 y/o F with hx of bladder CA reporting abd pain since 14:00 yesterday. Patient reports vomiting x5 dark brown, constipation , and diaphoresis. Physical exam reveals abd distension, mild diffuse abd tenderness, ileal conduit with urine bag with clear urine in the RLQ, hyperactive bowel sounds. Rectal exam reveals empty rectum, no masses, no hemorrhoids, and chronic indurated mass in the right pelvic area. Imaging and labs reviewed with patient. In the ED course the patient was given IV fluids, Valtrex, prednisone, levofloxacin, morphine, and Zofran. Discussed patient care with Dr. Chao, surgeon on-call, who recommended patient be admitted through the hospitalist and he will consult. Discussed patient care with Dr. George, hospitalist, who agreed to admit the patient to [facility]. Patient will be admitted to [facility] with dx of small bowel obstruction. The patient is agreeable with this plan. - Diagnoses Provider Diagnoses: Small bowel obstruction, UTI (urinary tract infection) - Provider Notifications Discussed Care Of Patient With: Aston Chao Time Discussed With Above Provider: 05:05 Instructed by Provider To: Other - patient should be admitted to the hospitalist and Dr. Chao agreed to consult. At 05:10 discussed patient care with Dr. George, hospitalist, who agreed to admit the patient to [facility]. Discharge - Sign-Out/Discharge Documenting (check all that apply): Discharge/Admit/Transfer - Discharge Plan Condition: Stable Disposition: ADMITTED TO [facility] Discharge Disposition Comment: admit to [facility] Prescriptions: predniSONE TAB* [Deltasone 20 MG TAB*] 60 mg PO DAILY #18 tab Referrals: Francisco Angelo MD [Primary Care Provider] - The documentation as recorded by the Aisha minor Elizabeth accurately reflects the service I personally performed and the decisions made by me, Jolynn Yates MD.
[2017-12-10] MEDS ORDERED: Al Hydrox/Mg Hydrox/Simet LIQ* 30 ML UDC PO PRN (05:38)
[2017-12-10] MEDS ORDERED: Morphine VIAL* 4 MG/ML VIAL (1 ml vial) IV PRN (05:38)
[2017-12-10] MEDS ORDERED: Ondansetron 40 MG VIAL* 2 MG/ML 20 ML VIAL IV PRN (05:38)
[2017-12-10] MEDS ORDERED: Magnesium Sulfate 2 GM IV* 2 GM/50 ML BAG IVPB ONE (05:40)
[2017-12-10] MEDS: Levothyroxine TAB* 50 MCG TAB PO SCH (07:57)
--- NOTE | 2017-12-10 07:59 | RAD ---
INDICATION: Abdominal pain. Bladder carcinoma. COMPARISON: PET scan 3 2017 TECHNIQUE: Noncontrast axial source images were acquired from the level hemidiaphragms to the symphysis pubis. Intravenous contrast was not given due to reported renal compromise. There is a request for limited oral contrast. Lung bases: The lung bases are clear. There is cardiomegaly. There is pacemaker artifact. Liver: The liver is normal in size. Noncontrast imaging shows no evidence of a hepatic mass or ductal dilatation. Gallbladder: There are no calcified gallstones. There is no evidence of wall thickening or pericholecystic fluid. The gallbladder is mildly distended. Spleen: The spleen is normal in size. The noncontrast CT appearance is normal. Pancreas: Noncontrast imaging shows no pancreatic mass or ductal dilitation. Adrenal glands: No masses are identified. Kidneys/Bladder: There is again mild, left greater than right, bilateral hydronephrosis which may be related to prior cystectomy with ileal conduit. There may be hyperdense cysts in the right kidney. There are also areas of incompletely characterized decreased attenuation within the right kidney.. The appearance is similar to the PET scan, however. No hypermetabolic lesions were seen on the earlier PET scan. Adenopathy: There is a large right inguinal mass appearing slightly smaller and different in configuration than at the time of earlier PET scan. This represented a hypermetabolic mass. Fluid collections: There are no significant free or localized fluid collections. There is subcutaneous edema Vessels: There are atherosclerotic changes with mild arteriomegaly. The IVC appears normal Pelvic organs: There is hysterectomy GI tract: There is poor oral contrast opacification. There is dilation of multiple small bowel loops consistent with partial obstruction. The transition zone is not identified. Suggest follow-up plain radiographs. Soft tissues: No soft tissue abnormalities of the extraperitoneal abdomen or pelvis are identified. Osseous structures: There are no acute osseous findings. There are spondylitic changes. There is a superior plate compression deformity of L4 IMPRESSION: 1. Small bowel obstruction 2. Cardiomegaly. 3. Mildly distended gallbladder. 4. Appearance of the kidneys is unchanged with mild bilateral hydronephrosis and incompletely characterized areas of increased and decreased attenuation within the right kidney. There is an ileal conduit. 5. Right inguinal lymphadenopathy. 6. L4 compression deformity, unchanged. 7. Hysterectomy
--- NOTE | 2017-12-10 08:22 | PN ---
Progress Note - Progress Note Date of Service: 12/10/17 SOAP: Subjective: feels much better this am after large vomiting event and had a diarrheal bowel movement. no abdominal pain. this event was similar to the one she described several weeks ago to me. Objective: Vital Signs Temp Pulse Resp BP Pulse Ox 97.8 F 79 16 115/62 100 12/10/17 06:35 12/10/17 06:35 12/10/17 06:35 12/10/17 06:35 12/10/17 06:35 lying flat in nad ngt in place now draining clear fluids CTA anteriorly s1 s2 nl soft nontender right inguinal mass ostomy clean and clear urine no le edema A+O x 3, nonfocal neuro exam Al Hydrox/Mg Hydrox/Simethicone (Maalox Plus*) 30 ml PO Q6H PRN PRN Reason: INDIGESTION Atorvastatin Calcium (Lipitor*) 20 mg PO DAILY [facility] Last Admin: 12/10/17 07:57 Dose: Not Given Digoxin (Lanoxin Tab*) 0.125 mg PO Q48HR@1700 [facility] Heparin Sodium (Porcine) (Heparin Vial(*)) 5,000 units SUBCUT Q8HR [facility] Sodium Chloride (Ns 0.9% 1000 Ml*) 1,000 mls @ 150 mls/hr IV PER RATE [facility] Last Admin: 12/10/17 04:27 Dose: 150 mls/hr Lactated Ringer's (Lactated Ringers 1000 Ml Bag*) 1,000 mls @ 125 mls/hr IV PER RATE [facility] Last Admin: 12/10/17 06:50 Dose: 125 mls/hr Levothyroxine Sodium (Synthroid Tab*) 50 mcg PO DAILY@0600 [facility] Last Admin: 12/10/17 07:57 Dose: Not Given Magnesium Oxide (Magox 400 Tab*) 400 mg PO DAILY [facility] Last Admin: 12/10/17 07:57 Dose: Not Given Morphine Sulfate (Morphine Vial*) 2 mg IV Q4H PRN PRN Reason: PAIN Ondansetron HCl (Zofran 40 Mg Vial*) 4 mg IV Q4H PRN PRN Reason: NAUSEA/VOMITING Assessment: 87 yo F w progressive metastatic bladder cancer who has been on palliative measures only presenting with a small bowel obstruction related to disease progression. We discussed this at length at her last office visit and again today. Unfortunately at this point there is little that can be done for her. She is interested in hospice at this time (previously had resisted this as she felt too good). We also discussed code status at length, and she is appropriately interested in being DNR/DNI. She has a big graduation alliance party for a granddaughter tomorrow evening and is hopeful to get to this. Plan: -check xray at 8 am and if improved pull NGT -ice chips after -advance to clears in am and if OK, d/c home with pain meds and antiemetics -hospice consult placed via social work/care management -DNR
[2017-12-10] MEDS ORDERED: Atorvastatin* 20 MG TAB PO SCH (09:00)
[2017-12-10] MEDS ORDERED: Magnesium Oxide TAB* 400 MG PO SCH (09:00)
[2017-12-10] MEDS ORDERED: Lidocaine 2.5%/Prilocain 2.5%* 5 GM TUBE TOPICAL ONE (09:13)
--- NOTE | 2017-12-10 09:34 | HP ---
CC: Francisco Angelo MD; Marlene Meyers MD * HISTORY AND PHYSICAL: DATE OF ADMISSION: 12/10/17 TIME OF EVALUATION: 0500. PRIMARY CARE PHYSICIAN: Francisco Angelo MD ONCOLOGIST: Marlene Meyers MD CHIEF COMPLAINT: Nausea, vomiting, and abdominal pain. HISTORY OF PRESENT ILLNESS: This is an 87-year-old female with a past medical history of bladder cancer, status post surgery, now on radiation treatment for metastasis in the setting of recurrence, who presented to the emergency room after having abdominal pain, nausea, and vomiting. She states her abdominal pain began around 2 p.m. yesterday and then around 5 p.m. she began having nausea and vomiting persistently. Her emesis was getting darker. She called in Oncology, spoke with Dr. Salmeron and he recommended coming to the emergency room. She states that she had several episodes of vomiting in the emergency room, it improved her abdominal pain. They did place an NG tube after her vomiting and when her pain resolved and it only produced a scant amount of output it is now since clamped. She no longer has any pain or nausea/vomiting. She has a small amount of flatus in the emergency room. Her last bowel movement was yesterday morning and she states that was a small one. She is not sure if she has a history of bowel obstruction. She states after her surgery back in 2016, they did put an NG tube and they put out a lot of output. She was having issues at that time and also appears potentially a month ago she had a small bowel obstruction that was managed at home. She denies any chest pain. No shortness of breath. No urinary symptoms. She was diaphoretic. No fevers or chills. Otherwise, review of systems is negative. In the emergency room, the patient had labs and imaging. She was given a liter of fluid, Zofran 8 mg, morphine 2 mg, and Levaquin, and was referred to the hospitalist service for further evaluation. PAST MEDICAL HISTORY: 1. History of bladder cancer status post surgery with ileal conduit, now with recurrent metastasis, on radiation. The patient is told she is terminal. She is followed by Dr. Meyers. 2. Atrial fibrillation, on anticoagulation. 3. Coronary artery disease, status post [place] with stent placement in August 2016. 4. History of pacemaker placement. 5. History of GI bleed in July 2017. 6. Hypothyroidism. PAST SURGICAL HISTORY: Bladder surgery with ileal conduit in August of 2016, history of hysterectomy. MEDICATIONS: 1. Coumadin, unclear of the dosing. 2. Magnesium 400 mg p.o. daily. 3. Digoxin 125 mcg, it appears every other day. 4. Statin 40 mg daily. 5. Levothyroxine 50 mcg daily. ALLERGIES: No known drug allergies. FAMILY HISTORY: Reviewed and noncontributory. SOCIAL HISTORY: The patient lives at home with , Tio, who is her healthcare proxy. No history of smoking, alcohol or illicit drug use. We discussed code status. They were not comfortable with discussing this. They would like to leave her full code at this point. REVIEW OF SYSTEMS: A 14-point review of systems as mentioned in the HPI, otherwise negative. PHYSICAL EXAMINATION GENERAL: Frail elderly female in no acute distress, with her and son at the bedside. VITAL SIGNS: Temp 97.9, pulse rate 83, respiratory rate 18, oxygen saturation 95 % on room air, blood pressure 112/68. HEENT: Head normocephalic. Pupils are equal and reactive. Oropharynx: Mucous membranes are moist. The patient with NG tube in place, clamped. NECK: Supple. No lymphadenopathy. RESPIRATORY: Clear to auscultation. No wheezing, rhonchi or rales. CARDIAC: Regular rate and rhythm. Soft systolic murmur heard throughout. ABDOMEN: Positive bowel sounds, soft. Some mild distention, nontender. Noted to have her ileal conduit ostomy with clear yellow urine. EXTREMITIES: No clubbing, cyanosis or edema. +1 DP. NEUROLOGIC: Alert and oriented x3. No gross focal neurologic deficits. LABORATORY DATA: White count 7.7, hemoglobin 9.4, hematocrit 28, platelets 177. INR was 1.84. Sodium 136, potassium 4.2, chloride 103, bicarb 24, BUN 39, creatinine 1.93, magnesium 1.7. Urine shows +3 leuks, +3 whites, +3 reds, and + 1 bacteria. RADIOGRAPHIC DATA: Findings positive for small bowel obstruction. There are multiple dilated loops of bowel with air-fluid levels, difficult to determine transition point, likely in the ileum. No free fluid or free air. Bilateral dilated renal collecting systems and ureters, this may be because of her cystectomy and ileal conduit. Compression fracture L4, again unchanged. The gallbladder is somewhat distended but this could be due to nonhealing. ASSESSMENT: This is an 87-year-old female with a past medical history of bladder cancer with recurrent metastasis, on radiation, who presents to the emergency room with abdominal pain, nausea, vomiting, and found to have a small bowel obstruction. Nausea, vomiting, and abdominal. Assessment: The patient now is clinically improving. Her abdominal exam is benign. Plan: We will admit her for observation, keep her n.p.o., place her on fluids. We will repeat an abdominal film at 8 o'clock to reevaluate but I suspect her small bowel obstruction is resolving. We will sign out to the oncology service to take over. We will hold her Coumadin in the interim as she discussed that it was recommended that she discontinue this by Dr. Meyers. CHRONIC MEDICAL PROBLEMS: 1. Atrial fibrillation. The patient is in sinus rhythm. Continue her digoxin and discuss Coumadin use at discharge. We will continue her magnesium and replete her mag with 2 g now. 2. Hyperlipidemia. Continue her statin. 3. Pyuria. The patient has no clinical presentation of a urinary tract infection. No white count and normal vitals. Hold off on further antibiotics for now. 5. Fluids, electrolytes, nutrition: N.p.o. with IV fluids. 6. DVT prophylaxis: The patient scores high risk, place her on heparin subcu t.i.d. Her INR is almost therapeutic. We will start her on heparin tomorrow morning if she still remains an inpatient. 7. Code status: This was discussed and she appears to remain full code. Recommend follow up with this with her oncologist. PATIENT TIME: Greater than 50 minutes was spent doing history and physical, greater than half time was spent in direct patient contact. [id number]/[facility] #: [id number] YARELI
--- NOTE | 2017-12-10 09:55 | RAD ---
Indication: Small bowel obstruction. RIGHT lower quadrant ostomy. Comparison: December 10, 2017 CT. Technique: Supine view of the abdomen. Report: Tip of nasogastric tube at gastric body. Only mild interval decrease in magnitude of small bowel dilatation compared with the CT of earlier the same date. Moderate stool throughout the colon with only mild rectal distention. No suspicious calcifications or mass effect. Unremarkable soft tissue contours. IMPRESSION: Small bowel obstruction with only mild interval decrease in magnitude of small bowel dilatation compared with the CT of earlier the same date.
[2017-12-10] MEDS ORDERED: Digoxin TAB* 0.125 MG PO SCH (17:00)
[2017-12-10] MEDS ORDERED: LORazepam INJ* 2 MG/ML 1 ML VIAL IV PUSH PRN (17:21)
[2017-12-11] MEDS: Levothyroxine TAB* 50 MCG TAB PO SCH (05:33)
[2017-12-11] MEDS ORDERED: Heparin VIAL(*) 5000 UNITS/ML VIAL (FIVE THOUSAND) SUBCUT SCH (06:00)
--- NOTE | 2017-12-11 08:02 | RAD ---
Indication: Reassess bowel obstruction. Comparison: December 10, 2017 Technique: Supine view of the abdomen. Report: Tip of nasogastric tube at level of gastric body. Resolution of previous dilated small bowel loops. Distal propagation of enteric contrast from the December 10, 2017 CT throughout the colon. Negative for colonic dilatation. Negative for mass effect. Unremarkable soft tissue contours. IMPRESSION: Resolution of small bowel obstruction.
[2017-12-11 11:57] VITALS: BP 135/79
--- NOTE | 2017-12-12 03:50 | DS ---
CC: Dr. Francisco Angelo * DISCHARGE SUMMARY: DATE OF ADMISSION: 12/10/17 DATE OF DISCHARGE: 12/11/17 PRIMARY CARE PROVIDER: Dr. Francisco Angelo. ATTENDING PHYSICIAN AND PRIMARY ONCOLOGIST: Dr. Marlene Meyers.* (DICTATED BY SEVERO WEAVER) DISCHARGING PROVIDER: SEVERO Weaver PRIMARY DISCHARGE DIAGNOSES: 1. Small bowel obstruction. 2. Metastatic bladder cancer with recent recurrence. 3. Urinary tract infection. SECONDARY DISCHARGE DIAGNOSES: 1. Atrial fibrillation. 2. Hypothyroidism. DISCHARGE MEDICATIONS: 1. Digoxin 0.125 mg p.o. every other day. 2. Levothyroxine 50 mcg p.o. daily. 3. Magnesium oxide 400 mg p.o. daily. 4. Zofran 4 mg p.o. q.6 hours as needed for nausea and vomiting. 5. Compazine 10 mg p.o. q.6 hours as needed for nausea and vomiting. 6. Bactrim DS 1 tablet p.o. twice daily x5 days. HOSPITAL IMAGIN. CT of the abdomen and pelvis, 12/10/17, shows small bowel obstruction with cardiomegaly and mildly distended gallbladder. She has mild bilateral hydronephrosis, unchanged from prior with an ileal conduit, right inguinal lymphadenopathy, hysterectomy and L4 compression deformity, which is unchanged from prior. 2. 12/10/17 show small bowel obstruction with mild interval increase in magnitude of dilation compared to CT results from earlier. 3. Abdominal x-ray, 12/11/17, shows resolution of small bowel obstruction with NG tube in place. HOSPITAL COURSE: This is an 87-year-old female with metastatic bladder cancer, most recently receiving palliative radiation therapy, followed by Dr. Marlene Meyers with [facility], who presented to the emergency department with abdominal pain and nausea and vomiting. The patient had had similar symptoms which self-resolved a couple of weeks prior to her hospitalization. The patient noticed a rather sudden onset of abdominal pain and then developed nausea and vomiting which became intractable and prompted her visit to the emergency department. CT scan demonstrated a small bowel obstruction. NG tube was placed and the patient was placed on n.p.o. status. Within 12 hours of NG tube placement, the patient reported that she had a rather large bowel movement and some improvement in her symptoms. On the day of discharge, she had another small bowel movement and her abdominal pain and nausea had completely resolved. Repeat KUB on the day of discharge also demonstrated resolution of her small bowel obstruction. The patient's NG tube was removed and she tolerated clear liquids. Discussion between Dr. Meyers on the patient during hospitalization resulted in decision to move forward with sign on to hospice, which will result on Thursday following discharge. The patient's granddaughter has a graduation ceremony and green party this weekend, for which she would very much like to participate and her goal is to be out of the hospital for this. DISPOSITION AND FOLLOWUP PLAN: The patient is being discharged to home with plans for sign on with hospice of the [facility] on Thursday. The patient was relatively asymptomatic at the time of discharge, but she reports that she has pain medications available to her at home and she was prescribed oral antiemetics. Also of note, the patient had an uncomplicated urinary tract infection confirmed by urine culture and will be sent home with 5 days of Bactrim. SEVERO WEAVER [id number]/[facility] #: [id number] YARELI
== END 2017-12-11 14:15 | disposition home or self-care (01) ==
LOC: ED 01:40 → SSU 05:38
PROVIDERS: ADMIT Pediatrics; ATTEND Internal Medicine Hematology & Oncology
DX: K56.609 Unspecified intestinal obstruction, unspecified as to partial versus complete obstruction (principal); C67.9 Malignant neoplasm of bladder, unspecified; C79.9 Secondary malignant neoplasm of unspecified site; N39.0 Urinary tract infection, site not specified; I48.91 Unspecified atrial fibrillation; E03.9 Hypothyroidism, unspecified; E78.5 Hyperlipidemia, unspecified; I51.7 Cardiomegaly; K82.8 Other specified diseases of gallbladder; Z79.899 Other long term (current) drug therapy; Z79.01 Long term (current) use of anticoagulants; Z95.0 Presence of cardiac pacemaker
CPT/HCPCS: 36415; 74018; 74176; 80053; 81003; 81015; 82150; 82270; 83605; 83690; 83735; 85025; 85610; 85730; 86140; 87077; 87086; 87186; 93005; 96365; 96367; 96372; 96375; 99233; 99239; 99285; A9270-GY; G0378; J1644; J1956; J2060; J2270; J2405; J3475